=== PATIENT | female | born 1940 | race Caucasian/White ===

== ENCOUNTER 2019-07-14 12:06 | Inpatient (IN) | payer MEDICARE, MEDICAID ==
[2019-07-14] MEDS ORDERED: Atropine Sulfate 1 mg/10 ml Syringe ONE (12:17)
[2019-07-14] MEDS ORDERED: Iopamidol-370 76% 500 ML 1 ML ONE (12:28)
[2019-07-14 12:37] LABS: Actual Bicarbonate (HCO3a) 19.7 mEq/L (22-28); Analyzer IN Cardio ER; Base Excess (BEa) -10.4 mEq/L (-2.0 to +3.0); Calcium, Ionized 1.14 mmol/L (1.12-1.30); Carboxyhemoglobin (COHb) 1.7 gm% (0.0-3.0); O2 Tension (PaO2) 93.8 mmHg (> 70.0); Potassium - ABG Lab 4.19 mmol/L (3.70-5.30)
[2019-07-14 12:38] LABS: CO2 Tension 71.8 mmHg (35.0-45.0); Puncture Site RRA; pH, Arterial 7.06 (7.35-7.45)
[2019-07-14] MEDS ORDERED: Succinylcholine Chloride 20 MG/ML 10 ml SYRINGE FS ONE (12:39)
[2019-07-14] MEDS ORDERED: PROPOFOL 20 ML ONE (12:39)
[2019-07-14] MEDS ORDERED: Fentanyl 100 MCG/2 ML VIAL ONE ×2 (13:01→13:17)
[2019-07-14] MEDS ORDERED: fentaNYL Citrate/PF 2,000 MCG in Sodium Chloride 0.9% 60 ML IV SCH ×2 (13:06→16:43)
--- NOTE | 2019-07-14 13:19 | RAD ---
CHEST ONE VIEW: HISTORY: Altered mental status. FINDINGS: NG tube and endotracheal tubes are in satisfactory location. Bilateral vascular congestion with incre ased linear and interstitial markings in the perihilar regions and lower lung zones bilaterally, wors e on the left side. Abnormal alveolar opacity in the left upper perihilar region. Possibilities inclu de that of pneumonia versus underlying mass. IMPRESSION: Abnormal interstitial and alveolar opacity changes bilaterally with evidence for small pleural effusi ons and nodular parenchymal changes in the right perihilar region, left infrahilar region and left up per perihilar region, raising the possibility of multifocal pneumonia with the possibility of associa benson mass. If the patient has symptoms of pneumonia, treatment and short-term follow-up study in two to three we eks is recommended to document clearing or stability. POS: TPC
[2019-07-14] MEDS ORDERED: Midazolam HCl 5 mg/ml Vial ONE (13:59)
--- NOTE | 2019-07-14 14:26 | CT ---
CTA OF THE HEAD WITH AND WITHOUT IV CONTRAST AND 3-D REFORMATTED IMAGING. CTA OF THE NECK WITH IV CONTRAST AND 3-D REFORMATTED IMAGING. INDICATION: Transfer from [facility] with complaints of sepsis, pneumonia and anemia; st roke like symptoms with altered mental status [facility] Last seen normal at 8:00 PM last night. History of Down syndrome COMPARISON: None FINDINGS: CTA OF THE HEAD WITH AND WITHOUT CONTRAST: NONCONTRAST CT OF BRAIN: Hemorrhage: None [place]hemia/Infarction: None. Midline Shift: None. Hydrocephalus: None. Skull and Extracranial Soft tissues: Normal. CTA OF THE BRAIN: Right ICA: Patent. Right MCA: Patent. Right JEANIE: Patent. ACOM: Patent. Left ICA: Patent. Left MCA: Patent. Left JEANIE: Patent. PCOMs: Patent. Vertebral arteries: Patent. Basilar Artery: Patent. real time trader: Patent. Incidentals: None. CTA OF THE NECK WITH CONTRAST: Right CCA: Patent. Right ICA: There is moderate luminal caliber narrowing involving the origin of the right ICA with 50 % luminal caliber stenosis. The right internal carotid artery is mildly tortuous. Right Subclavian: Patent. Right Vertebral Artery: Patent. Left CCA: Patent Left ICA: There is mild narrowing involving the proximal aspect of the left internal carotid artery. The left internal carotid artery is mildly tortuous. Left Subclavian: Patent. Left Vertebral Artery: Patent. Aerodigestive tract: Patient is intubated with gastric catheter placement. Evaluation of the aerodig estive tract is limited. Parotids/Submandibular/Thyroid glands: Normal. Lymph nodes: No pathologically enlarged lymph nodes. Lung Apices: There are hazy groundglass opacity seen within both upper lobes Bones: There is prominent levoscoliosis of the thoracic spine. There is ankylosis of C5-6. There is moderate to severe multilevel cervical spondylosis. Incidentals: None. IMPRESSION: 1. No hemodynamically significant stenosis, occlusion or aneurysmal formation within the head. 2. Moderate luminal caliber narrowing involving the origin of the right ICA and mild narrowing involv ing the proximal left internal carotid artery. 3. Hazy groundglass opacity within both upper lobes may reflect pulmonary edema or an infectious pneu monitis.
[2019-07-14 14:27] LABS: Actual Bicarbonate (HCO3a) 21.4 mEq/L (22-28); Analyzer IN Cardio ER; Base Excess (BEa) -2.8 mEq/L (-2.0 to +3.0); CO2 Tension 33.3 mmHg (35.0-45.0); Calcium, Ionized 1.06 mmol/L (1.12-1.30); Carboxyhemoglobin (COHb) 1.8 gm% (0.0-3.0); Hemoglobin (Hb) 6.3 g/dL (12.0-16.0); O2 Tension (PaO2) 174.1 mmHg (> 70.0); pH, Arterial 7.43 (7.35-7.45)
[2019-07-14 14:33] LABS: Puncture Site RRA
[2019-07-14 14:34] LABS: ALV-art Gradient 69.475 (0-20)
[2019-07-14] MEDS ORDERED: Norepinephrine 8 MG/0.9% NS 250 ML IVPB SCH (15:51)
[2019-07-14] MEDS ORDERED: Ondansetron PF 4 MG/2 ML Vial IVP PRN (15:51)
[2019-07-14] MEDS ORDERED: HUMULIN R 100 UNITS in Sodium Chloride 0.9% 100 ML IVPB SCH (15:51)
[2019-07-14] MEDS ORDERED: CCU Electrolyte Replacement 1 EACH FS ONE (15:51)
[2019-07-14] MEDS ORDERED: Acetaminophen 650 MG Suppository PR PRN (15:51)
[2019-07-14] MEDS ORDERED: Ventilator Sedation Protocol 1 EACH FS ONE (15:51)
[2019-07-14] MEDS ORDERED: Fentanyl BOLUS 250 ML IVPB PRN (16:43)
[2019-07-14] MEDS ORDERED: Propofol BOLUS 1,000 MG/100 ML VIAL IV PRN (16:43)
[2019-07-14] MEDS ORDERED: Morphine 2 MG/ML SYRINGE SLOW IVP PRN (16:43)
[2019-07-14] MEDS ORDERED: DISCONTINUE PREVIOUS NARCOTIC PAIN MEDICATIONS AND BENZODIAZEPINES FS SCH (16:43)
--- NOTE | 2019-07-14 16:57 | RAD ---
PORTABLE AP CHEST X-RAY: 07/14/19 HISTORY: Sepsis. COMPARISON: 07/14/19 at 1236 hours. FINDINGS: Endotracheal tube and nasogastric tube remain stable in position. Again noted is the mass-like density in the left mid lung zone with increased density and prominence in the right hilar region. Cardiac silhouette and pulmonary vasculature are within normal limits for the portable technique of the study. Severe bilateral glenohumeral osteoarthropathy is again noted. IMPRESSION: 1. Mass-like densities left mid lung zone and overlying right hilar region. The parenchymal opac ity overlying the right hilar region has increased from the prior exam. Findings could be related to multifocal pneumonia, but follow-up to complete resolution is recommended to exclude a neoplastic pro cess. 2. Mild improvement in interstitial densities previously seen at each lung base. 3. Endotracheal tube and nasogastric tube stable in position. POS: OFF
[2019-07-14 17:22] LABS: Bacteria/HPF 4+ HPF (None Seen); Bilirubin Negative (Negative); Blood, Urine 2+ (Negative); Clarity Turbid (Clear); Glucose, Urine (Dipstick) 150 mg/dL (Negative); Leukocyte Negative Leu/uL (Negative); Nitrite Negative (Negative); Protein, Urine (Dipstick) 200 mg/dL (Neg-Trace); RBC/HPF 0-3 HPF (0-3); Squamous Epithelial 0-3 HPF (0-3); Urobilinogen Normal mg/dL (Less than 2)
[2019-07-14] MEDS ORDERED: PHOS-NAK 1 PKT PACK PO PRN ×2 (17:34)
[2019-07-14] MEDS ORDERED: CCU ELECTROLYTE REPLACEMENT PROTOCOL FS PRN (17:34)
[2019-07-14] MEDS ORDERED: Potassium Chloride 20 MEQ TAB PO PRN (17:34)
[2019-07-14] MEDS ORDERED: Magnesium 2 GM/50 ML 2 GM in Premix Bag 1 BAG IVPB PRN (17:34)
[2019-07-14] MEDS ORDERED: Potassium Chloride 40 MEQ in Premix Bag 1 BAG IVPB PRN (17:34)
[2019-07-14] MEDS ORDERED: Potassium Phosphate 15 MMOL in Sodium Chloride 0.9% 250 ML 250 ML IV PRN (17:34)
[2019-07-14] MEDS ORDERED: Magnesium Oxide 400 MG TAB PO PRN ×2 (17:34)
[2019-07-14] MEDS ORDERED: Potassium Phosphate 12 MMOL in Sodium Chloride 0.9% 250 ML 250 ML IV PRN (17:34)
[2019-07-14] MEDS ORDERED: Potassium Chloride 40 MEQ in Sodium Chloride 0.9% 250 ML 250 ML IVPB PRN (17:34)
[2019-07-14] MEDS ORDERED: Potassium Phosphate 9 MMOL in Sodium Chloride 0.9% 100 ML IVPB PRN (17:34)
[2019-07-14] MEDS: Sodium Chloride 0.9% 1,000 ML IV SCH ×2 (17:38→17:39)
[2019-07-14] MEDS: Piperacillin/Tazobactam 3.375 GM in Sodium Chloride 0.9% 100 ML IVPB SCH (17:56)
[2019-07-14] MEDS ORDERED: Dextrose 50% Abboject 50 ML SYRINGE SLOW IVP PRN (18:16)
[2019-07-14] MEDS ORDERED: Dextrose 5% in Water 1,000 ML IV PRN (18:16)
[2019-07-14] MEDS: Lorazepam 2 MG/ML VIAL SLOW IVP PRN (19:30)
[2019-07-14] MEDS: Vancomycin 1.5 GRAM/300 ML BAG 1.5 GM in Premix Bag 1 BAG IVPB SCH (20:49)
[2019-07-14] MEDS: Propofol 1,000 MG/100 ML VIAL IV PRN (20:59)
[2019-07-15] MEDS: Piperacillin/Tazobactam 3.375 GM in Sodium Chloride 0.9% 100 ML IVPB SCH ×4 (00:34→16:53)
[2019-07-15] MEDS: Sodium Chloride 0.9% 1,000 ML IV SCH ×5 (00:37→22:00)
[2019-07-15 05:19] LABS: Anion Gap 15 mmol/L (10-20); BUN (Urea Nitrogen) 14 mg/dL (9.8-20.1); Calc. Creatinine Clearance 65 mL/min (70-130); Calcium 8.2 mg/dL (7.8-10.44); Carbon Dioxide 19 mmol/L (23-31); Chloride 103 mmol/L (98-107); Estimated GFR-MDRD 68; Glucose 89 mg/dL (83-110); Potassium 3.5 mmol/L (3.5-5.1); Sodium 133 mmol/L (136-145)
[2019-07-15 06:11] LABS: #Eosinphils 0.1 thou/uL (0.0-0.7); #Lymphocytes 1.8 thou/uL (1.20-3.40); #Monocytes 1.6 thou/uL (0.11-0.59); #Neutrophils 7.6 thou/uL (1.40-6.50); %Basophils 0.2 % (0.0-1.0); %Eosinophils 0.5 % (0.0-10.0); %Monocytes 14.7 % (0.0-10.0); %Neutrophils 68.6 % (42.0-75.0); Hemoglobin 6.4 g/dL (12.0-16.0); Mean Corpuscular HGB CONC 30.7 g/dL (32.0-36.0); Mean Corpuscular Hemoglobin 22.7 pg (27.0-31.0); Mean Corpuscular Volume 73.8 fL (78.0-98.0); Mean Platelet Volume 7.4 fL (7.4-10.4); Platelet Count 321 thou/uL (130-400); RBC Distribution Width 16.3 % (11.5-14.5); Red Blood Cell (RBC) Count 2.81 mill/uL (4.20-5.40)
[2019-07-15 06:12] LABS: Anisocytosis SLIGHT = 6-15 cells (100X) (0-5/hpf); Elliptocytes SLIGHT = 2-5 cells (100X) (0-1/hpf); Hypochromia SLIGHT = 6-15 cells (100X) (0-5/hpf); MDiff Complete? YES
[2019-07-15 06:47] LABS: Actual Bicarbonate (HCO3a) 21.3 mEq/L (22-28); Base Excess (BEa) -3.6 mEq/L (-2.0 to +3.0); CO2 Tension 37.8 mmHg (35.0-45.0); Calcium, Ionized 1.09 mmol/L (1.12-1.30); Carboxyhemoglobin (COHb) 2.2 gm% (0.0-3.0); Potassium - ABG Lab 3.62 mmol/L (3.70-5.30); pH, Arterial 7.37 (7.35-7.45)
[2019-07-15 06:58] LABS: Puncture Site RRAD
--- NOTE | 2019-07-15 07:54 | CON ---
DATE OF CONSULTATION: HISTORY OF PRESENT ILLNESS: She is intubated in the vent. She is transferred to the ICU with a diagnosis of sepsis and pneumonia. There are no family members at the bedside. Additional information is obtained from reviewing the transfer note, ER note. The patient is presented apparently to the ER with mental status change and resp distress last night. She is in a focused care correction. She has Parkinson disease and apparently, baseline dementia and Down syndrome. She was seen by the ER physician, extensive workup was done there, they are concerned she had a CT head and angio done, which shows no bleed. The patient's sister apparently was there. Hemoglobin on arrival was 7. They were transferring her to higher level of care. X-ray showed left-sided pneumonia. Somewhat down the line, she was intubated. It is unclear when EKG was unremarkable. PAST MEDICAL HISTORY: Pertinent for diabetes, anxiety, seizure disorder, hypertension, COPD, Parkinson disease, and gout. SOCIAL HISTORY: Never smoke. No alcohol abuse. No drug abuse. MEDICATIONS: List of medicine that was brought in en route included: 1. Tylenol. 2. Albuterol. 3. Allopurinol 100. 4. BuSpar 15. 5. Catapres patch. 6. Catapres p.o. 7. Plavix 75. 8. Cymbalta 60. 9. Lasix 20. 10. Keppra 750. 11. Synthroid 50. 12. Lisinopril 20. 13. Loratadine 10. ALLERGIES: APPARENTLY NONE. PHYSICAL EXAMINATION: GENERAL: Otherwise in the ICU, she is sedated on fentanyl 150. VITAL SIGNS: Pulse 70, blood pressure 100/70, sats are 100%, and respirations 10. CHEST: Bilateral rhonchi and crackles. CARDIAC: Normal S1 and S2. No gallops. ABDOMEN: No masses. LABORATORY DATA: PO2 of 174, pCO2 of 33, pH 7.43. Peak pressures at about 31. Chest x-ray shows bilateral infiltrates. CT head angio negative. Additionally, workup at the transfer center from [place] reveals a lab showed a white count was 13,000, hemoglobin and hematocrit of 7 and 23, glucose 158. Sodium was low at 132. Lactic acid was 3. Blood urine cultures were done. Platelet count normal. Albumin was normal at 4.5, BUN 16, creatinine 0.7, and bicarb was 21. IMPRESSION: Respiratory failure, pneumonia, chronic anemia, abnormal EKG, hypertension, baseline dementia, Parkinson disease, chronic obstructive pulmonary disease, and Down syndrome. She is on multiple antibiotic, which I continue. Start nutrition in the next 24 hours. Neb treatment is initiated ordered. we will wean when stable. We discussed with family as they arrive. This is a 45-minute critical time. Job ID: [id number] MTDSid
--- NOTE | 2019-07-15 08:02 | HP ---
PRIMARY CARE PROVIDER: Riley Sanchez MD, referred to the [facility] Hospitalist Service after transfer from [facility]. History was obtained from sister, Clarissa Lopez, who is the power of steel plate caulker. HISTORY OF PRESENT ILLNESS: The patient is a 79-year-old woman with Down syndrome, resident of care home. She was seen several days ago by Ms. Lopez, and she was doing well. Yesterday, she was notified that the patient had fallen, otherwise unremarkable. This morning, she was notified she was being sent to the emergency department with slurred speech, shaking all over. When she got to the ER, she noted that the patient became worse and developed hemiplegia. She came into [place] [facility], hypotensive with blood pressure 98/60. She was given atropine. Her pulse rapidly came up into the 70s. Arterial blood gas was severe with respiratory acidosis marked. She was intubated and sedated. PAST MEDICAL HISTORY: Down syndrome. She has fainted twice in the past year. She has history of diabetes mellitus type 2, hypertension, hypothyroidism, and Parkinson disease. PAST SURGICAL HISTORY: She has had a nephrectomy for renal cell carcinoma. She has had a C-spine fusion in the distant past. She has had bilateral cataract surgeries. ALLERGIES: NONE. MEDICATIONS: 1. Albuterol nebulizer 1.25 p.r.n. 2. Zyloprim 100 mg a day. 3. Aspirin 81 mg a day. 4. BuSpar 15 mg a day. 5. Varrjpebc-GEN-9 on skin, change every 7 days. 6. Clonidine 0.1 mg p.r.n. 7. Plavix 75 mg a day. 8. Cymbalta 60 mg a day. 9. Lasix 20 mg a day. 10. Keppra 750 mg, unknown frequency. 11. Lisinopril 20 mg a day. 12. Claritin 10 mg a day. FAMILY HISTORY: Brother has diabetes. No Parkinson's in the family. SOCIAL HISTORY: Resident of care home. Ambulates in wheelchair. Full code status confirmed with sister, Clarissa Lopez. No tobacco. No alcohol. REVIEW OF SYSTEMS: Unobtainable as the patient is intubated and sedated. CURRENT PHYSICAL EXAMINATION: GENERAL: Intubated, sedated, unresponsive. VITAL SIGNS: Current vital signs; pulse 80, blood pressure 116/75 on a vent with saturations in the mid 90s, and temperature 96.6. EXAMINATION OF HER HEAD, EYES, EARS, NOSE, AND THROAT: Reveals pupils are equal , round, with implants. Extraocular movements grossly intact. Sclerae are white. Tympanic membranes clear. Nose, clear. Examination of mouth is difficult due to the endotracheal and orogastric tube. NECK: Thick, short. No adenopathy, jugular venous distention. CHEST: Remarkably clear to auscultation and percussion. HEART: Had a regular rate and rhythm. First and second heart sounds are clear. There are no appreciated murmurs or gallops. ABDOMEN: Soft. Bowel sounds are normal. There is no hepatosplenomegaly. No mass. No rebound. No bruits. EXTREMITIES: Revealed 1+ edema with no cyanosis or clubbing. Pulses; carotid, radial, femoral, and dorsalis pedis pulses intact. SKIN: Warm and dry without bruises or rash. HEME/LYMPH: No tender or swollen lymph nodes in axilla, inguinal, cervical area that I was able to appreciate. NEUROLOGIC: Facies were symmetric. Deep tendon reflexes are diffusely diminished. Both toes are upgoing to plantar stimulation. LABORATORY DATA: Chest x-ray done here, vertical heart, infiltrates in the left upper lobe, left lower lobe, and right middle lobe. Endotracheal tube is present. Difficult to say whether it is above the kolby on the present study, reviewed by me. EKG; regular sinus rhythm within normal limits, reviewed by me. Laboratory done here strictly a blood gas, the first one was pH 7.06, pCO2 of 71.8, PO2 of 93.8 on 50% O2. Followup post intubation, pH 7.43, pCO2 of 33.3, O2 174 on 40% O2. Laboratory from [facility]. White cell count 13.0, hemoglobin 7.1 with microcytic microchromic indices, do not see a platelet count. Glucose 158, sodium 132, chloride 95, CO2 of 21, lactic acid 3.0, troponin 0.16. CT of the brain was done in [place] revealed enlargement of the ventricles. ADMITTING DIAGNOSES: 1. Sepsis syndrome with respiratory failure and transient hypotension. 2. Acute combined respiratory failure with hypercapnia and hypoxemia. 3. Pneumonia. 4. Diabetes mellitus, type 2. 5. Parkinson's. 6. Hypertension. 7. Normal renal function with history of nephrectomy. 8. Lactic acidosis plus respiratory acidosis. PLAN: The patient is full code. She is intubated, ventilated. She will be moved to the Critical Care Unit in the track template maker, director of intelligence to be consulted. Orders have been written for culture. She will be on vancomycin, Levaquin, and Zosyn because of her diabetes. She will initially be on IV insulin with frequent Accu-Cheks. She is currently not in need of pressors, but order for pressor has been written as needed. With history of coming in with severe bradycardia, there is worry about sick sinus syndrome since she has had 2 fainting spells, she will require close monitoring. Routine medicines such as her Parkinson medicines, etc., will be held at the present time. Job ID: [id number] MTDD
[2019-07-15] MEDS ORDERED: Artificial Tears 18 DROP/0.9 ML EA EYE PRN (08:06)
[2019-07-15] MEDS ORDERED: Sodium Chloride 0.65% Nasal 44 ML BOT EA NARE PRN (08:06)
[2019-07-15] MEDS ORDERED: Cepastat Lozenges 1 LOZ PO PRN (08:06)
[2019-07-15] MEDS ORDERED: levETIRAcetam 750 MG, Admixture Fee 1 EACH in Sodium Chloride 0.9% 100 ML IVPB SCH (09:00)
[2019-07-15] MEDS ORDERED: FLU VACC TS2019-20(65YR UP)/PF 180 MCG/0.5 ML SYRINGE IM ONE (09:00)
[2019-07-15] MEDS ORDERED: Prevnar 13-Val Conj/PF 0.5 ML SYRINGE IM ONE (09:00)
--- NOTE | 2019-07-15 09:07 | RAD ---
CHEST ONE VIEW: HISTORY: Intubated. Dyspnea. Followup. COMPARISON: 07/14/2019 FINDINGS: The cardiac silhouette is magnified by projection. Dense mass-like right infrahilar and left suprahil ar infiltrates, similar in appearance to the previous exam. Mediastinum is midline. Lines and tubes appear unchanged in position. No evidence of pneumothorax. Degenerative changes and partial collapse of each humeral head, similar in appearance. IMPRESSION: Dense bilateral mass like infiltrates and other findings are stable. POS: BOWEN
--- NOTE | 2019-07-15 09:16 | PRG ---
DATE OF SERVICE: 07/15/2019 SUBJECTIVE: Elvie Oliver this morning, she remains in the ICU, intubated in the vent, sedated. OBJECTIVE: VITAL SIGNS: Pulse is 93, temperature is 98, blood pressure 143/60, respiratory rate 18, sats 100%. I's and O's have been slightly ahead. CHEST: Decreased breath sounds. Minimal rhonchi. CARDIAC: Normal S1 and S2. No gallops. ABDOMEN: No masses. LABORATORY DATA: Hemoglobin and hematocrit are 6 and 20, white count 71911, platelet count is normal. PO2 is 151, pCO2 37, pH 7.37, on 40%, rate of 10, 470 tidal volume. Lytes are normal. Sodium is improved to 133, bicarb is 19, glucose is 140. X-ray shows bilateral pneumonia. IMPRESSION: Sepsis syndrome, pneumonia, Down syndrome, anemia, mental retardation, history of seizure disorders. PLAN: A unit of packed cells is being transfused. Continue antibiotics, deescalate once the other cultures back. Continue vent support. At this stage, she is not weanable. Hopefully in the next 24 to 48 hours, we can start weaning. This is one-half hour of critical time. Job ID: [id number]
[2019-07-15] MEDS: Famotidine/PF 20 mg/2ml Vial SLOW IVP SCH ×2 (09:52→20:19)
[2019-07-15] MEDS: Enoxaparin Sodium 40 MG/0.4 ML SYRINGE SC SCH (09:53)
--- NOTE | 2019-07-15 12:15 | PDOC.HOSPP ---
- Subjective Encounter Date: 07/15/19 Encounter Time: 09:45 Subjective: Patient seen and examined. No overnight events - Objective Vital Signs & Weight: Vital Signs (12 hours) Temp Pulse Resp Pulse Ox 07/15/19 12:00 12 07/15/19 11:00 99.2 F 07/15/19 10:19 84 07/15/19 10:00 12 07/15/19 09:59 98.9 F 07/15/19 08:00 99.0 F 12 100 07/15/19 06:59 93 07/15/19 06:56 82 12 100 07/15/19 06:00 12 07/15/19 04:00 99.4 F 12 07/15/19 03:00 100.6 F H 07/15/19 02:00 12 Weight Admit Weight 160 lb 7.944 oz Weight 155 lb 6.814 oz Most Recent Monitor Data Heart Rate from ECG 84 NIBP 128/55 NIBP BP-Mean 79 Respiration from ECG 21 SpO2 100 I&O: 07/14/19 07/15/19 07/16/19 06:59 06:59 06:59 Intake Total 1513.6 0 Output Total 590 225 Balance 923.6 -225 Result Diagrams: 07/15/19 04:48 07/15/19 04:48 Additional Labs: Accuchecks 07/15/19 07/15/19 07/14/19 09:26 00:49 21:59 POC Glucose 82 114 H 85 Radiology Reviewed by me: Yes EKG Reviewed by me: Yes Hospitalist ROS - Review of Systems ROS unobtainable: due to endotracheal tube - Medication Medications: Active Medications Generic Name Dose Route Start Last Admin Trade Name Freq PRN Reason Stop Dose Admin Acetaminophen 650 mg 07/14/19 15:51 07/15/19 03:06 Tylenol [place] 650 mg Q4H PRN Administration Headache/Fever/Mild Pain (1-3) Albuterol/Ipratropium 3 ml 07/14/19 19:00 07/15/19 06:56 Duoneb NEB 3 ml [id number] CARL Administration Enoxaparin Sodium 40 mg 07/15/19 09:00 07/15/19 09:53 Lovenox SC 40 mg 0900 CARL Administration Famotidine 20 mg 07/15/19 09:00 07/15/19 09:52 Pepcid SLOW IVP 20 mg BID CARL Administration Sodium Chloride 1,000 mls @ 0 mls/hr 07/14/19 15:51 07/14/19 17:38 Normal Saline 0.9% IV 1,000 mls .Q0M CARL Administration As Directed Sodium Chloride 1,000 mls @ 100 mls/hr 07/14/19 15:51 07/15/19 00:37 Normal Saline 0.9% IV 1,000 mls .Q10H CARL Administration Piperacillin Sod/Tazobactam 100 mls @ 200 mls/hr 07/14/19 18:00 07/15/19 05: 16 Sod 3.375 gm/ Sodium Chloride IVPB 100 mls Q6HR CARL Administration Vancomycin HCl 1.5 gm/ Device 300 mls @ 200 mls/hr 07/14/19 20:00 07/14/19 20 :49 IVPB 300 mls 2000 CARL Administration Potassium Chloride 40 meq/ 270 mls @ 67.5 mls/hr 07/14/19 17:34 07/15/19 08: 49 Sodium Chloride IVPB 270 mls ASDIR PRN Administration FOR SERUM K+ 2.5 - 3.5 Lorazepam 2 mg 07/14/19 16:43 07/14/19 19:30 Ativan SLOW IVP 08/13/19 16:43 2 mg Q1H PRN Administration Breakthrough agitation Propofol 1,000 mg 07/14/19 16:43 07/14/19 20:59 Diprivan IV 08/13/19 16:43 1,000 mg INF PRN Administration TO ACHIEVE GOAL RASS Protocol - Exam General Appearance: NAD, awake alert Eye: PERRL, anicteric sclera ENT: normocephalic atraumatic, no oropharyngeal lesions Neck: supple, symmetric, no JVD Heart: RRR, no murmur Respiratory: CTAB, no wheezes Gastrointestinal: soft, non-distended, normal bowel sounds Extremities: no edema Skin: normal turgor Musculoskeletal: normal tone Hosp A/P (1) Acute respiratory failure with hypoxia Code(s): J96.01 - ACUTE RESPIRATORY FAILURE WITH HYPOXIA Status: Acute (2) Pneumonia Code(s): J18.9 - PNEUMONIA, UNSPECIFIED ORGANISM Status: Acute (3) Sepsis Code(s): A41.9 - SEPSIS, UNSPECIFIED ORGANISM Status: Acute (4) Diabetes type 2, controlled Code(s): E11.9 - TYPE 2 DIABETES MELLITUS WITHOUT COMPLICATIONS Status: Chronic (5) Parkinson disease Code(s): G20 - PARKINSON'S DISEASE Status: Chronic (6) Hypothyroidism Code(s): E03.9 - HYPOTHYROIDISM, UNSPECIFIED Status: Chronic (7) Hypertension Code(s): I10 - ESSENTIAL (PRIMARY) HYPERTENSION Status: Chronic (8) Dyslipidemia Code(s): E78.5 - HYPERLIPIDEMIA, UNSPECIFIED Status: Chronic (9) Anxiety and depression Code(s): F41.9 - ANXIETY DISORDER, UNSPECIFIED; F32.9 - MAJOR DEPRESSIVE DISORDER, SINGLE EPISODE, UNSPECIFIED Status: Chronic - Plan old records reviewed/req, continue antibiotics, respiratory therapy 07/15/19- continue vent as per pulmonry, medication reviewed and continue to provide supportive care,
[2019-07-15] MEDS: Propofol 1,000 MG/100 ML VIAL IV PRN (16:53)
[2019-07-15] MEDS: Vancomycin 1.5 GRAM/300 ML BAG 1.5 GM in Premix Bag 1 BAG IVPB SCH (20:15)
[2019-07-15] MEDS: levETIRAcetam 750 MG, Admixture Fee 1 EACH in Sodium Chloride 0.9% 100 ML IVPB SCH (20:19)
[2019-07-15] MEDS: HumaLOG 300 UNITS/3 ML VIAL SC PRN (22:12)
[2019-07-16] MEDS: Piperacillin/Tazobactam 3.375 GM in Sodium Chloride 0.9% 100 ML IVPB SCH ×4 (00:36→17:21)
[2019-07-16 03:52] LABS: #Basophils 0.1 thou/uL (0.0-0.2); #Eosinphils 0.3 thou/uL (0.0-0.7); #Lymphocytes 1.5 thou/uL (1.20-3.40); #Monocytes 1.3 thou/uL (0.11-0.59); #Neutrophils 7.7 thou/uL (1.40-6.50); %Basophils 0.5 % (0.0-1.0); %Eosinophils 2.4 % (0.0-10.0); %Lymphocytes 13.7 % (21.0-51.0); %Monocytes 12.1 % (0.0-10.0); %Neutrophils 71.4 % (42.0-75.0); Hemoglobin 8.2 g/dL (12.0-16.0); Mean Corpuscular Hemoglobin 24.4 pg (27.0-31.0); Mean Corpuscular Volume 76.3 fL (78.0-98.0); Mean Platelet Volume 7.4 fL (7.4-10.4); Platelet Count 313 thou/uL (130-400); RBC Distribution Width 16.4 % (11.5-14.5); Red Blood Cell (RBC) Count 3.34 mill/uL (4.20-5.40); White Blood Cell (WBC) Count 10.8 thou/uL (4.8-10.8)
[2019-07-16 04:03] LABS: Anion Gap 13 mmol/L (10-20); BUN (Urea Nitrogen) 14 mg/dL (9.8-20.1); Calc. Creatinine Clearance 63 mL/min (70-130); Calcium 7.9 mg/dL (7.8-10.44); Carbon Dioxide 18 mmol/L (23-31); Chloride 108 mmol/L (98-107); Estimated GFR-MDRD 68; Glucose 145 mg/dL (83-110); Sodium 135 mmol/L (136-145)
[2019-07-16] MEDS: HumaLOG 300 UNITS/3 ML VIAL SC PRN ×2 (04:19→17:58)
[2019-07-16] MEDS: Propofol 1,000 MG/100 ML VIAL IV PRN ×2 (04:44→17:20)
[2019-07-16 07:31] LABS: Actual Bicarbonate (HCO3a) 20.3 mEq/L (22-28); Base Excess (BEa) -4.7 mEq/L (-2.0 to +3.0); CO2 Tension 36.6 mmHg (35.0-45.0); Calcium, Ionized 1.12 mmol/L (1.12-1.30); Carboxyhemoglobin (COHb) 2.2 gm% (0.0-3.0); O2 Tension (PaO2) 143.8 mmHg (> 70.0); Potassium - ABG Lab 3.79 mmol/L (3.70-5.30); pH, Arterial 7.36 (7.35-7.45)
--- NOTE | 2019-07-16 07:32 | RAD ---
EXAM: Portable chest PROVIDED CLINICAL HISTORY: Respiratory insufficiency COMPARISON: 07/15/2019 FINDINGS: Significant interval change with respect to the prior examination is not apparent. IMPRESSION: As above.
[2019-07-16 07:41] LABS: Puncture Site RRAD
[2019-07-16] MEDS: levETIRAcetam 750 MG, Admixture Fee 1 EACH in Sodium Chloride 0.9% 100 ML IVPB SCH ×2 (09:05→19:51)
[2019-07-16] MEDS: Famotidine/PF 20 mg/2ml Vial SLOW IVP SCH ×2 (09:05→19:51)
[2019-07-16] MEDS: Enoxaparin Sodium 40 MG/0.4 ML SYRINGE SC SCH (09:05)
[2019-07-16] MEDS: Sodium Chloride 0.9% 1,000 ML IV SCH ×5 (09:06→17:53)
--- NOTE | 2019-07-16 11:20 | PDOC.HOSPP ---
- Subjective Encounter Date: 07/16/19 Encounter Time: 09:00 Subjective: pt is on ventilator, Patient seen and examined. No overnight events - Objective Vital Signs & Weight: Vital Signs (12 hours) Temp Pulse Resp BP Pulse Ox 07/16/19 10:20 80 07/16/19 10:00 10 L 07/16/19 08:00 98.6 F 10 L 100 07/16/19 07:37 70 15 100 07/16/19 06:00 12 07/16/19 04:00 98.3 F 13 07/16/19 03:17 86 122/62 07/16/19 02:00 11 L 07/16/19 00:37 79 07/16/19 00:00 99.4 F 14 Weight Admit Weight 160 lb 7.944 oz Weight 166 lb 10.711 oz Most Recent Monitor Data Heart Rate from ECG 73 NIBP 134/55 NIBP BP-Mean 81 Respiration from ECG 22 SpO2 100 I&O: 07/15/19 07/16/19 07/17/19 06:59 06:59 06:59 Intake Total 1513.6 4742.8 Output Total 590 733 115 Balance 923.6 4009.8 -115 Result Diagrams: 07/16/19 03:10 07/16/19 03:10 Additional Labs: Accuchecks 07/16/19 07/15/19 07/15/19 04:13 22:11 16:58 POC Glucose 173 H 185 H 97 Radiology Reviewed by me: Yes EKG Reviewed by me: Yes Hospitalist ROS - Review of Systems ROS unobtainable: due to endotracheal tube - Medication Medications: Active Medications Generic Name Dose Route Start Last Admin Trade Name Freq PRN Reason Stop Dose Admin Acetaminophen 650 mg 07/14/19 15:51 07/15/19 03:06 Tylenol AZ 650 mg Q4H PRN Administration Headache/Fever/Mild Pain (1-3) Albuterol/Ipratropium 3 ml 07/14/19 19:00 07/16/19 07:37 Duoneb NEB 3 ml [id number] CARL Administration Enoxaparin Sodium 40 mg 07/15/19 09:00 07/16/19 09:05 Lovenox SC 40 mg 0900 CARL Administration Famotidine 20 mg 07/15/19 09:00 07/16/19 09:05 Pepcid SLOW IVP 20 mg BID CARL Administration Levofloxacin 750 mg/ Device 150 mls @ 100 mls/hr 07/15/19 15:00 07/15/19 14: 52 IVPB 150 mls 1500 CARL Administration Sodium Chloride 1,000 mls @ 0 mls/hr 07/14/19 15:51 07/16/19 09:10 Normal Saline 0.9% IV 1,000 mls .Q0M CARL Administration As Directed Sodium Chloride 1,000 mls @ 100 mls/hr 07/14/19 15:51 07/15/19 22:00 Normal Saline 0.9% IV Not Given .Q10H CARL Piperacillin Sod/Tazobactam 100 mls @ 200 mls/hr 07/14/19 18:00 07/16/19 05: 00 Sod 3.375 gm/ Sodium Chloride IVPB 100 mls Q6HR CARL Administration Vancomycin HCl 1.5 gm/ Device 300 mls @ 200 mls/hr 07/14/19 20:00 07/15/19 20 :15 IVPB 300 mls 2000 CARL Administration Fentanyl Citrate 2,000 mcg/ 100 mls @ 0 mls/hr 07/14/19 16:43 07/15/19 20:31 Sodium Chloride IV 08/13/19 16:43 100 mls INF CARL Administration Protocol Per Protocol Potassium Chloride 40 meq/ 270 mls @ 67.5 mls/hr 07/14/19 17:34 07/15/19 08: 49 Sodium Chloride IVPB 270 mls ASDIR PRN Administration FOR SERUM K+ 2.5 - 3.5 Levetiracetam 750 mg/ 107.5 mls @ 215 mls/hr 07/15/19 21:00 07/16/19 09:05 Miscellaneous Medication 1 IVPB 107.5 mls each/ Sodium Chloride BID CARL Administration Insulin Human Lispro 0 units 07/14/19 18:16 07/16/19 04:19 Humalog SC 2 unit .MODERATE SLIDING SC PRN Administration Moderate Correctional Scale Lorazepam 2 mg 07/14/19 16:43 07/14/19 19:30 Ativan SLOW IVP 08/13/19 16:43 2 mg Q1H PRN Administration Breakthrough agitation Propofol 1,000 mg 07/14/19 16:43 07/16/19 04:44 Diprivan IV 08/13/19 16:43 1,000 mg INF PRN Administration TO ACHIEVE GOAL RASS Protocol - Exam General Appearance: NAD Eye: PERRL ENT: normocephalic atraumatic Neck: supple, symmetric, no JVD Heart: RRR, no murmur, no gallops Respiratory: no wheezes, no rales, no ronchi Gastrointestinal: soft, non-distended, normal bowel sounds Extremities: no edema Skin: normal turgor Hosp A/P (1) Acute respiratory failure with hypoxia Code(s): J96.01 - ACUTE RESPIRATORY FAILURE WITH HYPOXIA Status: Acute (2) Pneumonia Code(s): J18.9 - PNEUMONIA, UNSPECIFIED ORGANISM Status: Acute Qualifiers: Pneumonia type: due to unspecified organism Laterality: bilateral Lung location: lower lobe of lung Qualified Code(s): J18.9 - Pneumonia, unspecified organism (3) Sepsis Code(s): A41.9 - SEPSIS, UNSPECIFIED ORGANISM Status: Acute Qualifiers: Sepsis acute organ dysfunction status: with acute organ dysfunction Severe sepsis acute organ dysfunction type: acute respiratory failure Acute respiratory failure type: with hypoxia Severe sepsis shock status: without septic shock (4) Diabetes type 2, controlled Code(s): E11.9 - TYPE 2 DIABETES MELLITUS WITHOUT COMPLICATIONS Status: Chronic Qualifiers: Diabetes mellitus group home insulin use: with group home use (5) Parkinson disease Code(s): G20 - PARKINSON'S DISEASE Status: Chronic (6) Hypothyroidism Code(s): E03.9 - HYPOTHYROIDISM, UNSPECIFIED Status: Chronic (7) Hypertension Code(s): I10 - ESSENTIAL (PRIMARY) HYPERTENSION Status: Chronic (8) Dyslipidemia Code(s): E78.5 - HYPERLIPIDEMIA, UNSPECIFIED Status: Chronic (9) Anxiety and depression Code(s): F41.9 - ANXIETY DISORDER, UNSPECIFIED; F32.9 - MAJOR DEPRESSIVE DISORDER, SINGLE EPISODE, UNSPECIFIED Status: Chronic - Plan old records reviewed/req, continue antibiotics, respiratory therapy 07/15/19- continue vent as per pulmonry, medication reviewed and continue to provide supportive care, 07/16/19- continue zosyn, vancomycin and levaquin, vent as per pulmonary, so far culture negative, medication reviewed as above, symptomatic treatment
--- NOTE | 2019-07-16 13:41 | PRG ---
DATE OF SERVICE: 07/16/2019 SUBJECTIVE: Elvie Oliver remains ventilated. She is on pressure support of 10 and 5 of PEEP. OBJECTIVE: VITAL SIGNS: Stable. Heart rate 82, respiratory rate is in the high 20s, oximetry is 97%, blood pressure 160/66. GENERAL: She is lightly sedated. LUNGS: Remarkable for diffuse wheezes. HEART: Regular rhythm. S1 and S2 are normal. ABDOMEN: Soft and nontender. EXTREMITIES: Without asymmetry. DIAGNOSTIC DATA: Chest radiograph reviewed by me shows bilateral infiltrates worse at the right base. LABORATORY DATA: White count 10.8, hemoglobin 8.2, platelets 313. Sodium 135, potassium 4, chloride 108, bicarb 18, BUN 14, creatinine 0.8. PH 7.36, pCO2 of 36, pO2 of 143. IMPRESSION: 1. Respiratory failure. In my opinion, she is currently not weanable. 2. Reactive airways with bronchospasm at this time. 3. Pneumonia. 4. Down syndrome. 5. Deconditioning. 6. Non-anion gap metabolic acidosis is mild. 7. Anemia with a decreased mean corpuscular volume of unclear etiology. PLAN: Continue supportive care. Plan to extubate her today. Job ID: [id number]
[2019-07-16 19:52] LABS: Vancomycin, Trough 11.9 ug/mL
[2019-07-16] MEDS: Vancomycin HCl 1.75 GM in Sodium Chloride 0.9% 500 ML IVPB SCH (20:20)
[2019-07-16] MEDS: Lorazepam 2 MG/ML VIAL SLOW IVP PRN (20:26)
[2019-07-17] MEDS: Piperacillin/Tazobactam 3.375 GM in Sodium Chloride 0.9% 100 ML IVPB SCH ×4 (00:07→17:02)
[2019-07-17] MEDS: Lorazepam 2 MG/ML VIAL SLOW IVP PRN (01:11)
[2019-07-17] MEDS: Sodium Chloride 0.9% 1,000 ML IV SCH ×3 (03:10→03:12)
[2019-07-17] MEDS: Propofol 1,000 MG/100 ML VIAL IV PRN (03:12)
[2019-07-17 04:04] LABS: Anion Gap 14 mmol/L (10-20); BUN (Urea Nitrogen) 11 mg/dL (9.8-20.1); Calc. Creatinine Clearance 74 mL/min (70-130); Calcium 8.2 mg/dL (7.8-10.44); Carbon Dioxide 16 mmol/L (23-31); Chloride 110 mmol/L (98-107); Estimated GFR-MDRD 76; Glucose 140 mg/dL (83-110); Potassium 4.1 mmol/L (3.5-5.1); Sodium 136 mmol/L (136-145)
[2019-07-17 07:12] LABS: Actual Bicarbonate (HCO3a) 17.8 mEq/L (22-28); Base Excess (BEa) -7.1 mEq/L (-2.0 to +3.0); CO2 Tension 33.8 mmHg (35.0-45.0); Calcium, Ionized 1.15 mmol/L (1.12-1.30); Carboxyhemoglobin (COHb) 1.5 gm% (0.0-3.0); Hemoglobin (Hb) 10.1 g/dL (12.0-16.0); O2 Tension (PaO2) 132.8 mmHg (> 70.0); Potassium - ABG Lab 3.78 mmol/L (3.70-5.30); pH, Arterial 7.34 (7.35-7.45)
[2019-07-17 07:28] LABS: Puncture Site RRAD
--- NOTE | 2019-07-17 07:33 | RAD ---
EXAM: Portable chest PROVIDED CLINICAL HISTORY: Respiratory insufficiency COMPARISON: 07/16/2019 FINDINGS: Significant interval change with respect to the prior examination is not apparent. IMPRESSION: As above.
[2019-07-17] MEDS: Enoxaparin Sodium 40 MG/0.4 ML SYRINGE SC SCH (08:00)
[2019-07-17] MEDS: Famotidine/PF 20 mg/2ml Vial SLOW IVP SCH ×2 (08:00→20:11)
[2019-07-17] MEDS: levETIRAcetam 750 MG, Admixture Fee 1 EACH in Sodium Chloride 0.9% 100 ML IVPB SCH ×2 (08:01→20:12)
[2019-07-17 08:53] LABS: #Eosinphils 0.7 thou/uL (0.0-0.7); #Lymphocytes 1.9 thou/uL (1.20-3.40); #Monocytes 1.5 thou/uL (0.11-0.59); #Neutrophils 7.2 thou/uL (1.40-6.50); %Basophils 0.2 % (0.0-1.0); %Eosinophils 6.3 % (0.0-10.0); %Lymphocytes 16.5 % (21.0-51.0); %Monocytes 13.4 % (0.0-10.0); %Neutrophils 63.6 % (42.0-75.0); Hemoglobin 7.8 g/dL (12.0-16.0); Mean Corpuscular HGB CONC 31.3 g/dL (32.0-36.0); Mean Corpuscular Hemoglobin 24.1 pg (27.0-31.0); Mean Platelet Volume 7.4 fL (7.4-10.4); Platelet Count 307 thou/uL (130-400); RBC Distribution Width 17.1 % (11.5-14.5); Red Blood Cell (RBC) Count 3.25 mill/uL (4.20-5.40); White Blood Cell (WBC) Count 11.4 thou/uL (4.8-10.8)
--- NOTE | 2019-07-17 10:46 | PDOC.HOSPP ---
- Subjective Encounter Date: 07/17/19 Encounter Time: 09:50 Subjective: Patient seen and examined. No overnight events - Objective Vital Signs & Weight: Vital Signs (12 hours) Temp Pulse Resp Pulse Ox 07/17/19 10:24 84 07/17/19 10:00 18 07/17/19 08:00 97.6 F 13 07/17/19 06:44 72 11 L 100 07/17/19 06:00 16 07/17/19 04:00 98.2 F 86 10 L 07/17/19 02:00 12 07/17/19 01:55 69 07/17/19 01:54 100 07/17/19 00:00 97.9 F 10 L Weight Admit Weight 160 lb 7.944 oz Weight 169 lb 12.095 oz Most Recent Monitor Data Heart Rate from ECG 82 NIBP 192/81 NIBP BP-Mean 118 Respiration from ECG 19 SpO2 100 I&O: 07/16/19 07/17/19 07/18/19 06:59 06:59 06:59 Intake Total 4742.8 4068.4 Output Total 733 610 105 Balance 4009.8 3458.4 -105 Result Diagrams: 07/17/19 08:45 07/17/19 03:26 Additional Labs: Accuchecks 07/17/19 07/16/19 07/16/19 10:02 21:04 18:01 POC Glucose 147 H 121 H 180 H 07/16/19 12:59 POC Glucose 154 H Radiology Reviewed by me: Yes EKG Reviewed by me: Yes Hospitalist ROS - Review of Systems ROS unobtainable: due to endotracheal tube - Medication Medications: Active Medications Generic Name Dose Route Start Last Admin Trade Name Freq PRN Reason Stop Dose Admin Acetaminophen 650 mg 07/14/19 15:51 07/15/19 03:06 Tylenol NM 650 mg Q4H PRN Administration Headache/Fever/Mild Pain (1-3) Albuterol/Ipratropium 3 ml 07/14/19 19:00 07/17/19 06:44 Duoneb NEB 3 ml [id number] CARL Administration Enoxaparin Sodium 40 mg 07/15/19 09:00 07/17/19 08:00 Lovenox SC 40 mg 0900 CARL Administration Famotidine 20 mg 07/15/19 09:00 07/17/19 08:00 Pepcid SLOW IVP 20 mg BID CARL Administration Levofloxacin 750 mg/ Device 150 mls @ 100 mls/hr 07/15/19 15:00 07/16/19 15: 47 IVPB 150 mls 1500 CARL Administration Sodium Chloride 1,000 mls @ 0 mls/hr 07/14/19 15:51 07/16/19 15:48 Normal Saline 0.9% IV 1,000 mls .Q0M CARL Administration As Directed Sodium Chloride 1,000 mls @ 100 mls/hr 07/14/19 15:51 07/17/19 03:10 Normal Saline 0.9% IV 1,000 mls .Q10H CARL Administration Piperacillin Sod/Tazobactam 100 mls @ 200 mls/hr 07/14/19 18:00 07/17/19 06: 23 Sod 3.375 gm/ Sodium Chloride IVPB 100 mls Q6HR CARL Administration Fentanyl Citrate 2,000 mcg/ 100 mls @ 0 mls/hr 07/14/19 16:43 07/15/19 20:31 Sodium Chloride IV 08/13/19 16:43 100 mls INF CARL Administration Protocol Per Protocol Potassium Chloride 40 meq/ 270 mls @ 67.5 mls/hr 07/14/19 17:34 07/15/19 08: 49 Sodium Chloride IVPB 270 mls ASDIR PRN Administration FOR SERUM K+ 2.5 - 3.5 Levetiracetam 750 mg/ 107.5 mls @ 215 mls/hr 07/15/19 21:00 07/17/19 08:01 Miscellaneous Medication 1 IVPB 107.5 mls each/ Sodium Chloride BID CARL Administration Vancomycin HCl 1.75 gm/ Sodium 500 mls @ 250 mls/hr 07/16/19 20:00 07/16/19 20:20 Chloride IVPB 500 mls 2000 CARL Administration Insulin Human Lispro 0 units 07/14/19 18:16 07/16/19 17:58 Humalog SC 2 unit .MODERATE SLIDING SC PRN Administration Moderate Correctional Scale Lorazepam 2 mg 07/14/19 16:43 07/17/19 01:11 Ativan SLOW IVP 08/13/19 16:43 2 mg Q1H PRN Administration Breakthrough agitation Propofol 1,000 mg 07/14/19 16:43 07/17/19 03:12 Diprivan IV 08/13/19 16:43 1,000 mg INF PRN Administration TO ACHIEVE GOAL RASS Protocol - Exam General Appearance: NAD Eye: PERRL ENT: normocephalic atraumatic Neck: supple, symmetric, no JVD Respiratory: rhonchi, wheezes Gastrointestinal: soft, non-distended, normal bowel sounds Extremities: no cyanosis, no clubbing, no edema Skin: normal turgor Musculoskeletal: normal tone Hosp A/P (1) Acute respiratory failure with hypoxia Code(s): J96.01 - ACUTE RESPIRATORY FAILURE WITH HYPOXIA Status: Acute (2) Pneumonia Code(s): J18.9 - PNEUMONIA, UNSPECIFIED ORGANISM Status: Acute Qualifiers: Pneumonia type: due to unspecified organism Laterality: bilateral Lung location: lower lobe of lung Qualified Code(s): J18.9 - Pneumonia, unspecified organism (3) Sepsis Code(s): A41.9 - SEPSIS, UNSPECIFIED ORGANISM Status: Acute Qualifiers: Sepsis acute organ dysfunction status: with acute organ dysfunction Severe sepsis acute organ dysfunction type: acute respiratory failure Acute respiratory failure type: with hypoxia Severe sepsis shock status: without septic shock (4) Diabetes type 2, controlled Code(s): E11.9 - TYPE 2 DIABETES MELLITUS WITHOUT COMPLICATIONS Status: Chronic Qualifiers: Diabetes mellitus rn long term care insulin use: with rn long term care use (5) Parkinson disease Code(s): G20 - PARKINSON'S DISEASE Status: Chronic (6) Hypothyroidism Code(s): E03.9 - HYPOTHYROIDISM, UNSPECIFIED Status: Chronic (7) Hypertension Code(s): I10 - ESSENTIAL (PRIMARY) HYPERTENSION Status: Chronic (8) Dyslipidemia Code(s): E78.5 - HYPERLIPIDEMIA, UNSPECIFIED Status: Chronic (9) Anxiety and depression Code(s): F41.9 - ANXIETY DISORDER, UNSPECIFIED; F32.9 - MAJOR DEPRESSIVE DISORDER, SINGLE EPISODE, UNSPECIFIED Status: Chronic - Plan old records reviewed/req, continue antibiotics, respiratory therapy 07/15/19- continue vent as per pulmonry, medication reviewed and continue to provide supportive care, 07/16/19- continue zosyn, vancomycin and levaquin, vent as per pulmonary, so far culture negative, medication reviewed as above, symptomatic treatment 07/17/19- continue ventilatory support for now, no new recommendation, medication reviewed and continue to provide symptomatic treatment
[2019-07-17] MEDS: hydrALAZINE 20 MG/ML VIAL SLOW IVP PRN (11:04)
[2019-07-17] MEDS: Sodium Chloride 0.45% 1,000 ML IV SCH (12:49)
--- NOTE | 2019-07-17 13:11 | PRG ---
DATE OF SERVICE: 07/17/2019 SUBJECTIVE: Elvie Oliver is sedated for mechanical ventilation. We will be switching into Precede today to see how she does. OBJECTIVE: VITAL SIGNS: She is afebrile, respiratory rates in the 20s, heart rate is 104, and blood pressure 157/70. LUNGS: Clear, exception of some audible secretions. HEART: Regular rhythm. ABDOMEN: Soft. EXTREMITIES: Without edema. NEURO: Grossly nonfocal. LABORATORY DATA: PH of 7.34, CO2 of 33, and pO2 of 133. Sodium 136, potassium 4.1, chloride 110, bicarb 16, BUN 11, and creatinine 0.74. White count 11.4, hemoglobin 7.8, and platelets 307,000. IMPRESSION: 1. Respiratory failure. 2. Hyperchloremic acidosis. 3. Learning disability with Down's. 4. Bronchospasm yesterday, improved today. 5. Deconditioning. 6. Anemia, it is likely of mixed etiology. PLAN: Continue supportive care. She may be a candidate for weaning and extubation in the next 24 to 48 hours. Job ID: [id number]
[2019-07-17] MEDS: HumaLOG 300 UNITS/3 ML VIAL SC PRN (16:49)
[2019-07-17] MEDS: Vancomycin HCl 1.75 GM in Sodium Chloride 0.9% 500 ML IVPB SCH (20:12)
[2019-07-18] MEDS: Piperacillin/Tazobactam 3.375 GM in Sodium Chloride 0.9% 100 ML IVPB SCH ×4 (00:55→17:01)
[2019-07-18] MEDS: Sodium Chloride 0.45% 1,000 ML IV SCH (06:05)
[2019-07-18] MEDS: HumaLOG 300 UNITS/3 ML VIAL SC PRN ×2 (06:05→09:28)
[2019-07-18 07:15] LABS: Actual Bicarbonate (HCO3a) 20.1 mEq/L (22-28); Base Excess (BEa) -4.4 mEq/L (-2.0 to +3.0); CO2 Tension 34.7 mmHg (35.0-45.0); Calcium, Ionized 1.14 mmol/L (1.12-1.30); Carboxyhemoglobin (COHb) 1.4 gm% (0.0-3.0); Hemoglobin (Hb) 8.9 g/dL (12.0-16.0); O2 Tension (PaO2) 128.3 mmHg (> 70.0); Potassium - ABG Lab 3.99 mmol/L (3.70-5.30); pH, Arterial 7.38 (7.35-7.45)
[2019-07-18 07:24] LABS: ALV-art Gradient 42.225 (0-20); Puncture Site RRA
[2019-07-18] MEDS: hydrALAZINE 20 MG/ML VIAL SLOW IVP PRN (07:24)
[2019-07-18] MEDS: Propofol 1,000 MG/100 ML VIAL IV PRN ×2 (08:39→19:57)
[2019-07-18] MEDS: levETIRAcetam 750 MG, Admixture Fee 1 EACH in Sodium Chloride 0.9% 100 ML IVPB SCH ×2 (08:42→20:53)
[2019-07-18] MEDS: Enoxaparin Sodium 40 MG/0.4 ML SYRINGE SC SCH (08:42)
[2019-07-18] MEDS: Famotidine/PF 20 mg/2ml Vial SLOW IVP SCH ×2 (08:42→20:04)
[2019-07-18] MEDS ORDERED: niCARdipine 40MG In NaCl 40 MG/200 ML BAG IVPB SCH (08:45)
[2019-07-18] MEDS ORDERED: niCARdipine 50 MG in Sodium Chloride 0.9% 250 ML 230 ML IV SCH ×2 (09:30→15:45)
[2019-07-18] MEDS ORDERED: Sodium Chloride 0.45% 1,000 ML IV SCH ×2 (11:07→15:45)
--- NOTE | 2019-07-18 11:54 | PRG ---
DATE OF SERVICE: SUBJECTIVE: Elvie Oliver remains mechanically ventilated. She has copious secretions this morning. Intake and output have been reviewed. She is 12 L ahead since she was admitted to the hospital. Chest x-ray yesterday really did show significant pulmonary edema. OBJECTIVE: LUNGS: Remarkable for rhonchorous wheezes bilaterally. HEART: Regular rhythm. ABDOMEN: Soft. EXTREMITIES: Without asymmetry. PLAN: I have recommended that we repeat a chest x-ray tomorrow. No lab was done today. I have reordered lab. I talked to the sister by phone and explained that I am really not sure where this is going to end up. I encouraged them to consider do not resuscitate status. Also explained to them that if we do get to a point where we could successfully extubate her, I would not want her re-intubated. Sister is in agreement with that, but wants to talk to the other siblings. She says she never wants to have her trach or a PEG, so we will continue to move forward. I have reassured her that we will continue to take care of her aggressively, although her prognosis given her deconditioned state is quite poor. If for hemoglobin drops further tomorrow we will transfuse her. We will diurese her today. She has also been hypertensive with a diastolic of over 100, so I started her on a Cardene drip. Her IVs will be switched to KVO given her excessive volume. PH today 7.38, CO2 34, PO2 128. Hemoglobin on blood gas was 8.9. Sodium is 134, potassium 3.9, chloride 109. Overall, she is stable. Critical care time 30 minutes not including the time spent talking with family. Job ID: [id number]
--- NOTE | 2019-07-18 11:55 | PDOC.HOSPP ---
- Subjective Encounter Date: 07/18/19 Encounter Time: 09:40 Subjective: Patient seen and examined. No new complaints. No overnight events - Objective Vital Signs & Weight: Vital Signs (12 hours) Temp Pulse Pulse Pulse Resp BP BP 07/18/19 10:25 85 07/18/19 10:00 17 07/18/19 08:42 114 H 139 H 150/96 H 07/18/19 08:00 98.8 F 21 H 07/18/19 07:24 72 187/82 H 07/18/19 07:04 72 07/18/19 06:00 14 07/18/19 04:00 98.5 F 07/18/19 03:24 67 125/53 L 07/18/19 02:00 12 07/18/19 00:00 98.4 F 12 BP Pulse Ox Pulse Ox Pulse Ox 07/18/19 10:25 07/18/19 10:00 07/18/19 08:42 146/125 H 95 98 07/18/19 08:00 100 07/18/19 07:24 07/18/19 07:04 07/18/19 06:00 07/18/19 04:00 07/18/19 03:24 07/18/19 02:00 07/18/19 00:00 Weight Admit Weight 160 lb 7.944 oz Weight 179 lb 7.3 oz Most Recent Monitor Data Heart Rate from ECG 75 NIBP 118/47 NIBP BP-Mean 70 Respiration from ECG 16 SpO2 100 I&O: 07/17/19 07/18/19 07/19/19 06:59 06:59 06:59 Intake Total 4068.4 4380.2 240 Output Total 610 735 425 Balance 3458.4 3645.2 -185 Result Diagrams: 07/17/19 08:45 07/17/19 03:26 Additional Labs: Accuchecks 07/18/19 07/18/19 07/17/19 09:29 04:17 22:13 POC Glucose 181 H 185 H 163 H 07/17/19 16:51 POC Glucose 155 H Radiology Reviewed by me: Yes EKG Reviewed by me: Yes Hospitalist ROS - Review of Systems ROS unobtainable: due to endotracheal tube - Medication Medications: Active Medications Generic Name Dose Route Start Last Admin Trade Name Freq PRN Reason Stop Dose Admin Acetaminophen 650 mg 07/14/19 15:51 07/15/19 03:06 Tylenol DC 650 mg Q4H PRN Administration Headache/Fever/Mild Pain (1-3) Albuterol/Ipratropium 3 ml 07/14/19 19:00 07/18/19 07:03 Duoneb NEB 3 ml [id number] CARL Administration Enoxaparin Sodium 40 mg 07/15/19 09:00 07/18/19 08:42 Lovenox SC 40 mg 0900 CARL Administration Famotidine 20 mg 07/15/19 09:00 07/18/19 08:42 Pepcid SLOW IVP 20 mg BID CARL Administration Hydralazine HCl 10 mg 07/15/19 08:06 07/18/19 07:24 Apresoline SLOW IVP 10 mg Q4H PRN Administration SBP > 180 and HR < 70 Levofloxacin 750 mg/ Device 150 mls @ 100 mls/hr 07/15/19 15:00 07/17/19 14: 09 IVPB 150 mls 1500 CARL Administration Sodium Chloride 1,000 mls @ 0 mls/hr 07/14/19 15:51 07/16/19 15:48 Normal Saline 0.9% IV 1,000 mls .Q0M CARL Administration As Directed Piperacillin Sod/Tazobactam 100 mls @ 200 mls/hr 07/14/19 18:00 07/18/19 11: 12 Sod 3.375 gm/ Sodium Chloride IVPB 100 mls Q6HR CARL Administration Fentanyl Citrate 2,000 mcg/ 100 mls @ 0 mls/hr 07/14/19 16:43 07/15/19 20:31 Sodium Chloride IV 08/13/19 16:43 100 mls INF CARL Administration Protocol Per Protocol Potassium Chloride 40 meq/ 270 mls @ 67.5 mls/hr 07/14/19 17:34 07/15/19 08: 49 Sodium Chloride IVPB 270 mls ASDIR PRN Administration FOR SERUM K+ 2.5 - 3.5 Levetiracetam 750 mg/ 107.5 mls @ 215 mls/hr 07/15/19 21:00 07/18/19 08:42 Miscellaneous Medication 1 IVPB 107.5 mls each/ Sodium Chloride BID CARL Administration Vancomycin HCl 1.75 gm/ Sodium 500 mls @ 250 mls/hr 12/21/19 20:00 07/17/19 20:12 Chloride IVPB 500 mls 2000 CARL Administration Dexmedetomidine HCl 200 mcg/ 50 mls @ 0 mls/hr 07/17/19 12:30 07/18/19 11:05 Sodium Chloride IVPB 50 mls INF CARL Administration Protocol Per Protocol Insulin Human Lispro 0 units 07/14/19 18:16 07/18/19 09:28 Humalog SC 2 unit .MODERATE SLIDING SC PRN Administration Moderate Correctional Scale Propofol 1,000 mg 07/14/19 16:43 07/18/19 08:39 Diprivan IV 08/13/19 16:43 1,000 mg INF PRN Administration TO ACHIEVE GOAL RASS Protocol - Exam General Appearance: NAD Eye: PERRL, anicteric sclera ENT: normocephalic atraumatic, no oropharyngeal lesions Neck: supple, symmetric, no JVD Heart: RRR, no murmur, no gallops Respiratory: wheezes Gastrointestinal: soft, non-distended Extremities: no cyanosis Skin: normal turgor Musculoskeletal: normal tone Hosp A/P (1) Acute respiratory failure with hypoxia Code(s): J96.01 - ACUTE RESPIRATORY FAILURE WITH HYPOXIA Status: Acute (2) Pneumonia Code(s): J18.9 - PNEUMONIA, UNSPECIFIED ORGANISM Status: Acute Qualifiers: Pneumonia type: due to unspecified organism Laterality: bilateral Lung location: lower lobe of lung Qualified Code(s): J18.9 - Pneumonia, unspecified organism (3) Sepsis Code(s): A41.9 - SEPSIS, UNSPECIFIED ORGANISM Status: Acute Qualifiers: Sepsis acute organ dysfunction status: with acute organ dysfunction Severe sepsis acute organ dysfunction type: acute respiratory failure Acute respiratory failure type: with hypoxia Severe sepsis shock status: without septic shock (4) Diabetes type 2, controlled Code(s): E11.9 - TYPE 2 DIABETES MELLITUS WITHOUT COMPLICATIONS Status: Chronic 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 (5) Parkinson disease Code(s): G20 - PARKINSON'S DISEASE Status: Chronic (6) Hypothyroidism Code(s): E03.9 - HYPOTHYROIDISM, UNSPECIFIED Status: Chronic (7) Hypertension Code(s): I10 - ESSENTIAL (PRIMARY) HYPERTENSION Status: Chronic (8) Dyslipidemia Code(s): E78.5 - HYPERLIPIDEMIA, UNSPECIFIED Status: Chronic (9) Anxiety and depression Code(s): F41.9 - ANXIETY DISORDER, UNSPECIFIED; F32.9 - MAJOR DEPRESSIVE DISORDER, SINGLE EPISODE, UNSPECIFIED Status: Chronic - Plan old records reviewed/req, continue antibiotics, respiratory therapy 07/15/19- continue vent as per pulmonry, medication reviewed and continue to provide supportive care, 07/16/19- continue zosyn, vancomycin and levaquin, vent as per pulmonary, so far culture negative, medication reviewed as above, symptomatic treatment 07/17/19- continue ventilatory support for now, no new recommendation, medication reviewed and continue to provide symptomatic treatment 07/18/19- continue lasix, cardene drip, not a candidate for weaning given possible fluid overload, continue empiric antibiotics for now,
[2019-07-18] MEDS ORDERED: Furosemide 40 MG/4 ML VIAL SLOW IVP SCH (14:00)
[2019-07-18] MEDS ORDERED: Acetaminophen 650 MG Suppository PR PRN ×2 (15:12→15:44)
[2019-07-18] MEDS ORDERED: Ondansetron PF 4 MG/2 ML Vial IVP PRN (15:27)
[2019-07-18] MEDS ORDERED: DISCONTINUE PREVIOUS NARCOTIC PAIN MEDICATIONS AND BENZODIAZEPINES FS SCH (15:30)
[2019-07-18] MEDS ORDERED: HUMULIN R 100 UNITS in Sodium Chloride 0.9% 100 ML IVPB SCH ×2 (15:30→15:45)
[2019-07-18] MEDS ORDERED: Sodium Chloride 0.9% 1,000 ML IV SCH (15:30)
[2019-07-18] MEDS ORDERED: Morphine 2 MG/ML SYRINGE SLOW IVP PRN (15:32)
[2019-07-18] MEDS ORDERED: Propofol BOLUS 1,000 MG/100 ML VIAL IV PRN (15:32)
[2019-07-18] MEDS ORDERED: Fentanyl BOLUS 250 ML IVPB PRN (15:33)
[2019-07-18] MEDS ORDERED: Potassium Chloride 20 MEQ TAB PO PRN (15:34)
[2019-07-18] MEDS ORDERED: Potassium Chloride 40 MEQ in Premix Bag 1 BAG IVPB PRN (15:35)
[2019-07-18] MEDS ORDERED: Potassium Chloride 40 MEQ in Sodium Chloride 0.9% 250 ML 250 ML IVPB PRN (15:35)
[2019-07-18] MEDS ORDERED: Magnesium Oxide 400 MG TAB PO PRN ×2 (15:36)
[2019-07-18] MEDS ORDERED: CCU ELECTROLYTE REPLACEMENT PROTOCOL FS PRN (15:36)
[2019-07-18] MEDS ORDERED: PHOS-NAK 1 PKT PACK PO PRN ×2 (15:37)
[2019-07-18] MEDS ORDERED: Potassium Phosphate 9 MMOL in Sodium Chloride 0.9% 100 ML IVPB PRN (15:37)
[2019-07-18] MEDS ORDERED: Magnesium 2 GM/50 ML 2 GM in Premix Bag 1 BAG IVPB PRN (15:37)
[2019-07-18] MEDS ORDERED: Potassium Phosphate 12 MMOL in Sodium Chloride 0.9% 250 ML 250 ML IV PRN (15:38)
[2019-07-18] MEDS ORDERED: Potassium Phosphate 15 MMOL in Sodium Chloride 0.9% 250 ML 250 ML IV PRN (15:38)
[2019-07-18] MEDS ORDERED: Dextrose 5% in Water 1,000 ML IV PRN (15:39)
[2019-07-18] MEDS ORDERED: Dextrose 50% Abboject 50 ML SYRINGE SLOW IVP PRN (15:39)
[2019-07-18] MEDS ORDERED: Artificial Tears 18 DROP/0.9 ML EA EYE PRN (15:40)
[2019-07-18] MEDS ORDERED: Cepastat Lozenges 1 LOZ PO PRN (15:41)
[2019-07-18] MEDS ORDERED: Sodium Chloride 0.65% Nasal 44 ML BOT EA NARE PRN (15:41)
[2019-07-18] MEDS ORDERED: hydrALAZINE 20 MG/ML VIAL SLOW IVP PRN (15:41)
[2019-07-18] MEDS ORDERED: fentaNYL Citrate/PF 2,000 MCG in Sodium Chloride 0.9% 60 ML IV SCH (15:45)
[2019-07-18] MEDS: Vancomycin HCl 1.75 GM in Sodium Chloride 0.9% 500 ML IVPB SCH (19:54)
[2019-07-19] MEDS: Piperacillin/Tazobactam 3.375 GM in Sodium Chloride 0.9% 100 ML IVPB SCH ×4 (00:09→17:01)
[2019-07-19 04:48] LABS: Anion Gap 11 mmol/L (10-20); BUN (Urea Nitrogen) 16 mg/dL (9.8-20.1); Calc. Creatinine Clearance 78 mL/min (70-130); Calcium 8.5 mg/dL (7.8-10.44); Carbon Dioxide 24 mmol/L (23-31); Chloride 106 mmol/L (98-107); Estimated GFR-MDRD 75; Glucose 154 mg/dL (83-110); Potassium 3.6 mmol/L (3.5-5.1); Sodium 137 mmol/L (136-145)
[2019-07-19] MEDS: Propofol 1,000 MG/100 ML VIAL IV PRN (05:06)
[2019-07-19] MEDS: Furosemide 40 MG/4 ML VIAL SLOW IVP SCH ×2 (05:06→14:22)
[2019-07-19] MEDS: HumaLOG 300 UNITS/3 ML VIAL SC PRN ×3 (05:06→16:32)
[2019-07-19 05:11] LABS: Mean Corpuscular HGB CONC 31.4 g/dL (32.0-36.0); Mean Corpuscular Hemoglobin 23.7 pg (27.0-31.0); Mean Corpuscular Volume 75.4 fL (78.0-98.0); RBC Distribution Width 17.8 % (11.5-14.5); Red Blood Cell (RBC) Count 3.38 mill/uL (4.20-5.40)
[2019-07-19 05:24] LABS: Band 5 % (5-11); Eosinophils 4 % (0-10); Lymphocytes 9 % (21-51); MDiff Complete? YES; Mean Platelet Volume 7.3 fL (7.4-10.4); Monocytes 4 % (0-10); Neutrophil 77 % (42-75); Platelet Count 303 thou/uL (130-400)
[2019-07-19 06:56] LABS: Base Excess (BEa) -1.7 mEq/L (-2.0 to +3.0); CO2 Tension 38.9 mmHg (35.0-45.0); Calcium, Ionized 1.17 mmol/L (1.12-1.30); Carboxyhemoglobin (COHb) 2.7 gm% (0.0-3.0); Hemoglobin (Hb) 8.6 g/dL (12.0-16.0); Potassium - ABG Lab 3.54 mmol/L (3.70-5.30); pH, Arterial 7.39 (7.35-7.45)
[2019-07-19 07:05] LABS: Puncture Site RRA
[2019-07-19 07:06] LABS: ALV-art Gradient 58.275 (0-20)
[2019-07-19] MEDS: Enoxaparin Sodium 40 MG/0.4 ML SYRINGE SC SCH (08:11)
[2019-07-19] MEDS: Famotidine/PF 20 mg/2ml Vial SLOW IVP SCH ×2 (08:12→20:43)
[2019-07-19] MEDS: levETIRAcetam 750 MG, Admixture Fee 1 EACH in Sodium Chloride 0.9% 100 ML IVPB SCH ×2 (08:24→20:40)
--- NOTE | 2019-07-19 09:37 | RAD ---
Portable frontal chest radiograph: 07/19/2019 COMPARISON: 07/17/2019 HISTORY: Respiratory insufficiency FINDINGS: Nonspecific mild hazy increased density noted in both lung bases. Aeration is slightly impr cinthia within the left base medially when compared to the prior exam. Stable endotracheal tube and nasogastric tube. No lobar consolidation or alveolar edema. IMPRESSION: Portable chest radiograph as detailed above.
--- NOTE | 2019-07-19 10:04 | PRG ---
DATE OF SERVICE: 07/19/2019 SUBJECTIVE: Elvie Oliver remains mechanically ventilated. OBJECTIVE: VITAL SIGNS: She is still on sedation. Oximetry is 100%. FiO2 is 30, heart rate 72, blood pressure 108/48. LUNGS: Remarkable for rhonchi and wheezes, but these are improved compared to yesterday. HEART: Regular rhythm. ABDOMEN: Soft and nontender. EXTREMITIES: Without edema. LABORATORY DATA: White count 9.0, hemoglobin 8.0, platelets 303. Electrolytes are normal. PH 7.39, CO2 38, PO2 107. IMPRESSION: 1. Respiratory failure, slowly weaning. 2. Chronically bedridden and chair-bound state with severe learning disability. 3. We will check a chest x-ray in the morning. 4. We will decrease her IMV to 6. 5. In the morning, we will decrease her IMV to 2, working toward weaning. I have also already broached the subject with sister about end of life issues, do not resuscitate status, etc. I have encouraged them to make a family decision before we extubate her. Job ID: [id number]
--- NOTE | 2019-07-19 11:17 | PDOC.HOSPP ---
- Subjective Encounter Date: 07/19/19 Encounter Time: 09:45 Subjective: pt is on ventilator, no overnight event - Objective Vital Signs & Weight: Vital Signs (12 hours) Temp Pulse Resp BP Pulse Ox 07/19/19 11:00 98.8 F 07/19/19 10:06 76 07/19/19 10:00 15 07/19/19 08:00 18 100 07/19/19 07:00 98.5 F 07/19/19 06:37 65 07/19/19 06:00 17 07/19/19 04:18 65 07/19/19 04:00 98.7 F 15 07/19/19 02:00 10 L 07/19/19 00:00 98.9 F 14 07/18/19 23:29 79 139/68 Weight Admit Weight 160 lb 7.944 oz Weight 176 lb 5.917 oz Most Recent Monitor Data Heart Rate from ECG 76 NIBP 141/62 NIBP BP-Mean 88 Respiration from ECG 18 SpO2 100 I&O: 07/18/19 07/19/19 07/20/19 06:59 06:59 06:59 Intake Total 4380.2 3626.0 385 Output Total 735 3625 2225 Balance 3645.2 1.0 -1840 Result Diagrams: 07/19/19 04:00 07/19/19 04:00 Additional Labs: Accuchecks 07/19/19 07/19/19 07/18/19 10:06 04:03 22:09 POC Glucose 176 H 170 H 147 H 07/18/19 16:08 POC Glucose 146 H Radiology Reviewed by me: Yes EKG Reviewed by me: Yes Hospitalist ROS - Review of Systems ROS unobtainable: due to endotracheal tube - Medication Medications: Active Medications Generic Name Dose Route Start Last Admin Trade Name Freq PRN Reason Stop Dose Admin Albuterol/Ipratropium 3 ml 07/18/19 19:00 07/19/19 06:37 Duoneb NEB 3 ml [id number] CARL Administration Enoxaparin Sodium 40 mg 07/19/19 09:00 07/19/19 08:11 Lovenox SC 40 mg 0900 CARL Administration Famotidine 20 mg 07/18/19 21:00 07/19/19 08:12 Pepcid SLOW IVP 20 mg BID CARL Administration Furosemide 40 mg 07/19/19 06:00 07/19/19 05:06 Lasix SLOW IVP 40 mg 0600,1400 CARL Administration Piperacillin Sod/Tazobactam 100 mls @ 200 mls/hr 07/18/19 18:00 07/19/19 05: 06 Sod 3.375 gm/ Sodium Chloride IVPB 100 mls Q6HR CARL Administration Levetiracetam 750 mg/ 107.5 mls @ 215 mls/hr 07/18/19 21:00 07/19/19 08:24 Miscellaneous Medication 1 IVPB 107.5 mls each/ Sodium Chloride BID CARL Administration Vancomycin HCl 1.75 gm/ Sodium 500 mls @ 250 mls/hr 07/18/19 20:00 07/18/19 19:54 Chloride IVPB 500 mls 2000 CARL Administration Dexmedetomidine HCl 200 mcg/ 50 mls @ 0 mls/hr 07/18/19 15:45 07/19/19 05:06 Sodium Chloride IVPB 50 mls INF CARL Administration Protocol Per Protocol Insulin Human Lispro 0 units 07/18/19 15:40 07/19/19 10:04 Humalog SC 2 unit .MODERATE SLIDING SC PRN Administration Moderate Correctional Scale Propofol 1,000 mg 07/18/19 15:29 07/19/19 05:06 Diprivan IV 08/13/19 16:43 1,000 mg INF PRN Administration TO ACHIEVE GOAL RASS Protocol - Exam General Appearance: NAD Eye: anicteric sclera ENT: normocephalic atraumatic Neck: supple, symmetric Heart: RRR, no murmur Respiratory: wheezes Gastrointestinal: soft, non-distended Extremities: no edema Skin: normal turgor Musculoskeletal: normal tone Hosp A/P (1) Acute respiratory failure with hypoxia Code(s): J96.01 - ACUTE RESPIRATORY FAILURE WITH HYPOXIA Status: Acute (2) Pneumonia Code(s): J18.9 - PNEUMONIA, UNSPECIFIED ORGANISM Status: Acute Qualifiers: Pneumonia type: due to unspecified organism Laterality: bilateral Lung location: lower lobe of lung Qualified Code(s): J18.9 - Pneumonia, unspecified organism (3) Sepsis Code(s): A41.9 - SEPSIS, UNSPECIFIED ORGANISM Status: Acute Qualifiers: Sepsis acute organ dysfunction status: with acute organ dysfunction Severe sepsis acute organ dysfunction type: acute respiratory failure Acute respiratory failure type: with hypoxia Severe sepsis shock status: without septic shock (4) Diabetes type 2, controlled Code(s): E11.9 - TYPE 2 DIABETES MELLITUS WITHOUT COMPLICATIONS Status: Chronic Qualifiers: Diabetes mellitus residential insulin use: with residential use (5) Parkinson disease Code(s): G20 - PARKINSON'S DISEASE Status: Chronic (6) Hypothyroidism Code(s): E03.9 - HYPOTHYROIDISM, UNSPECIFIED Status: Chronic (7) Hypertension Code(s): I10 - ESSENTIAL (PRIMARY) HYPERTENSION Status: Chronic (8) Dyslipidemia Code(s): E78.5 - HYPERLIPIDEMIA, UNSPECIFIED Status: Chronic (9) Anxiety and depression Code(s): F41.9 - ANXIETY DISORDER, UNSPECIFIED; F32.9 - MAJOR DEPRESSIVE DISORDER, SINGLE EPISODE, UNSPECIFIED Status: Chronic - Plan old records reviewed/req, continue antibiotics, respiratory therapy Consults: Palliative Care 07/15/19- continue vent as per pulmonry, medication reviewed and continue to provide supportive care, 07/16/19- continue zosyn, vancomycin and levaquin, vent as per pulmonary, so far culture negative, medication reviewed as above, symptomatic treatment 07/17/19- continue ventilatory support for now, no new recommendation, medication reviewed and continue to provide symptomatic treatment 07/18/19- continue lasix, cardene drip, not a candidate for weaning given possible fluid overload, continue empiric antibiotics for now, 07/19/19, slow weaning is ongoing, will consult palliative care for goal of care , on vancomycin and zosyn, sedated, continue lasix, medication reviewed and continue to provide symptomatic treatment, vent as per pulmonary.
[2019-07-19] MEDS: Vancomycin HCl 1.75 GM in Sodium Chloride 0.9% 500 ML IVPB SCH (20:40)
[2019-07-20] MEDS: Piperacillin/Tazobactam 3.375 GM in Sodium Chloride 0.9% 100 ML IVPB SCH ×4 (00:18→17:27)
[2019-07-20] MEDS: HumaLOG 300 UNITS/3 ML VIAL SC PRN ×3 (05:20→22:21)
[2019-07-20] MEDS: Furosemide 40 MG/4 ML VIAL SLOW IVP SCH ×2 (05:20→13:23)
[2019-07-20 05:55] LABS: Band 1 % (5-11); Eosinophils 4 % (0-10); Hemoglobin 8.1 g/dL (12.0-16.0); Lymphocytes 8 % (21-51); MDiff Complete? YES; Mean Corpuscular HGB CONC 31.9 g/dL (32.0-36.0); Mean Corpuscular Hemoglobin 23.7 pg (27.0-31.0); Mean Corpuscular Volume 74.4 fL (78.0-98.0); Mean Platelet Volume 7.3 fL (7.4-10.4); Monocytes 8 % (0-10); Myelocyte 1 % (0-0); Neutrophil 78 % (42-75); Platelet Count 281 thou/uL (130-400); RBC Distribution Width 17.8 % (11.5-14.5); Red Blood Cell (RBC) Count 3.41 mill/uL (4.20-5.40); White Blood Cell (WBC) Count 9.6 thou/uL (4.8-10.8)
[2019-07-20 05:58] LABS: Anion Gap 12 mmol/L (10-20); BUN (Urea Nitrogen) 20 mg/dL (9.8-20.1); Calc. Creatinine Clearance 62 mL/min (70-130); Calcium 8.8 mg/dL (7.8-10.44); Carbon Dioxide 29 mmol/L (23-31); Chloride 102 mmol/L (98-107); Estimated GFR-MDRD 58; Glucose 156 mg/dL (83-110); Potassium 3.2 mmol/L (3.5-5.1); Sodium 140 mmol/L (136-145)
[2019-07-20 07:29] LABS: Actual Bicarbonate (HCO3a) 24.3 mEq/L (22-28); Base Excess (BEa) 1.8 mEq/L (-2.0 to +3.0); CO2 Tension 29.9 mmHg (35.0-45.0); Calcium, Ionized 1.11 mmol/L (1.12-1.30); Carboxyhemoglobin (COHb) 0.8 gm% (0.0-3.0); O2 Tension (PaO2) 120.4 mmHg (> 70.0); Potassium - ABG Lab 3.63 mmol/L (3.70-5.30); pH, Arterial 7.53 (7.35-7.45)
[2019-07-20 07:33] LABS: Puncture Site LRA
[2019-07-20 07:34] LABS: ALV-art Gradient 56.125 (0-20)
[2019-07-20] MEDS: Enoxaparin Sodium 40 MG/0.4 ML SYRINGE SC SCH (08:06)
[2019-07-20] MEDS: Famotidine/PF 20 mg/2ml Vial SLOW IVP SCH ×2 (08:06→19:59)
[2019-07-20] MEDS: levETIRAcetam 750 MG, Admixture Fee 1 EACH in Sodium Chloride 0.9% 100 ML IVPB SCH ×2 (08:14→19:56)
--- NOTE | 2019-07-20 09:47 | PRG ---
DATE OF SERVICE: 07/20/2019 TIME SPENT: 35 minutes of critical care time. SUBJECTIVE: The patient remains intubated on mechanical ventilation. She is on minimal settings> OBJECTIVE: VITAL SIGNS: Temperature is 98.8, pulse 93, blood pressure 168/72, O2 saturation 95%. 24-hour intake 3164, output 5630. HEENT: She has choreiform movements of her head. NECK: No adenopathy or JVD. LUNGS: Clear anteriorly. CARDIOVASCULAR: S1, S2 regular without murmur. ABDOMEN: Soft, obese, nontender, nondistended. EXTREMITIES: Edematous arms and legs. LABORATORY DATA: Sodium 140, potassium 3.2, chloride 102, CO2 of 29, BUN 20, creatinine 0.9, glucose 156. White blood cell count 9.6, hematocrit 25.3, and platelet count 281. PH of 7.53, pCO2 of 29, pO2 tidal volume 470, PEEP 5, pressure support 10, FiO2 of 30%. Her chest x-ray is actually fairly clear. ASSESSMENT: 1. Acute respiratory failure requiring mechanical ventilation. 2. Chronically bedridden state with severe learning disability. 3. Anasarca. PLAN: Family is supposed to arrive this afternoon. Hopefully, we can have a discussion about end of life care and extubating, but not re-intubating if she fails. She seems to be stable otherwise. We will follow. Job ID: [id number]
--- NOTE | 2019-07-20 13:11 | PDOC.HOSPP ---
- Subjective Encounter Date: 07/20/19 Encounter Time: 13:11 non-verbal Subjective: On CPAP trials this AM. Patient has had diarrhea according to staff with loose stools but no blood or pus. - Objective Vital Signs & Weight: Vital Signs (12 hours) Temp Pulse Resp BP Pulse Ox 07/20/19 12:50 108 H 174/71 H 07/20/19 12:48 110 H 18 99 07/20/19 12:04 166/62 H 07/20/19 12:00 16 07/20/19 11:00 100.4 F H 07/20/19 10:52 166/62 H 07/20/19 10:00 16 07/20/19 08:00 19 95 07/20/19 07:00 98.8 F 07/20/19 06:36 76 155/65 H 07/20/19 06:31 73 12 99 07/20/19 06:00 16 07/20/19 04:00 98.5 F 07/20/19 02:24 67 111/39 L 07/20/19 02:00 16 Weight Admit Weight 160 lb 7.944 oz Weight 173 lb 4.533 oz Most Recent Monitor Data Heart Rate from ECG 113 NIBP 141/50 NIBP BP-Mean 80 Respiration from ECG 15 SpO2 96 I&O: 07/19/19 07/20/19 07/21/19 06:59 06:59 06:59 Intake Total 3626.0 3164.1 Output Total 3625 5630 2175 Balance 1.0 -2465.9 -2175 Result Diagrams: 07/20/19 03:18 07/20/19 03:18 Additional Labs: Accuchecks 07/20/19 07/20/19 07/19/19 10:35 05:21 22:05 POC Glucose 149 H 181 H 124 H 07/19/19 16:35 POC Glucose 159 H Hospitalist ROS - Review of Systems ROS unobtainable: due to mental status - Medication Medications: Active Medications Generic Name Dose Route Start Last Admin Trade Name Freq PRN Reason Stop Dose Admin Enoxaparin Sodium 40 mg 07/19/19 09:00 07/20/19 08:06 Lovenox SC 40 mg 0900 CARL Administration Famotidine 20 mg 07/18/19 21:00 07/20/19 08:06 Pepcid SLOW IVP 20 mg BID CARL Administration Furosemide 40 mg 07/19/19 06:00 07/20/19 05:20 Lasix SLOW IVP 40 mg 0600,1400 CARL Administration Piperacillin Sod/Tazobactam 100 mls @ 200 mls/hr 07/18/19 18:00 07/20/19 11: 56 Sod 3.375 gm/ Sodium Chloride IVPB 100 mls Q6HR CARL Administration Levetiracetam 750 mg/ 107.5 mls @ 215 mls/hr 07/18/19 21:00 07/20/19 08:14 Miscellaneous Medication 1 IVPB 107.5 mls each/ Sodium Chloride BID CARL Administration Vancomycin HCl 1.75 gm/ Sodium 500 mls @ 250 mls/hr 07/18/19 20:00 07/19/19 20:40 Chloride IVPB 500 mls 2000 CARL Administration Levofloxacin 750 mg/ Device 150 mls @ 100 mls/hr 07/19/19 15:00 07/19/19 14: 31 IVPB 150 mls 1500 CARL Administration Dexmedetomidine HCl 400 mcg/ 100 mls @ 0 mls/hr 07/19/19 21:00 07/19/19 21:37 Sodium Chloride IVPB 100 mls INF CARL Administration Protocol Per Protocol Insulin Human Lispro 0 units 07/18/19 15:40 07/20/19 05:20 Humalog SC 2 unit .MODERATE SLIDING SC PRN Administration Moderate Correctional Scale Potassium Chloride 40 meq 07/18/19 15:34 07/20/19 06:23 Klor-Con PER TUBE 40 meq ASDIR PRN Administration FOR SERUM K+ 2.5-3.5 Propofol 1,000 mg 07/18/19 15:29 07/19/19 05:06 Diprivan IV 08/13/19 16:43 1,000 mg INF PRN Administration TO ACHIEVE GOAL RASS Protocol - Exam General Appearance: awake alert, ill appearing ENT: normocephalic atraumatic, moist mucosa Heart: no gallops, no rubs, irregular Heart - other findings: tachycardia present Respiratory: no wheezes, no rales, no ronchi, normal chest expansion Gastrointestinal: soft, non-tender, non-distended Gastrointestinal - other findings: Valencia in place with clear urine Skin: normal turgor, no lesions Hosp A/P (1) Acute respiratory failure with hypoxia Code(s): J96.01 - ACUTE RESPIRATORY FAILURE WITH HYPOXIA Status: Acute (2) Pneumonia Code(s): J18.9 - PNEUMONIA, UNSPECIFIED ORGANISM Status: Acute Qualifiers: Pneumonia type: due to unspecified organism Laterality: bilateral Lung location: lower lobe of lung Qualified Code(s): J18.9 - Pneumonia, unspecified organism (3) Diabetes type 2, controlled Code(s): E11.9 - TYPE 2 DIABETES MELLITUS WITHOUT COMPLICATIONS Status: Chronic Qualifiers: Diabetes mellitus adjunct faculty for medical terminology insulin use: with nursing home use Diabetes mellitus complication status: without complication Qualified Code(s): E11.9 - Type 2 diabetes mellitus without complications; Z79.4 - nursing home (current) use of insulin (4) Dyslipidemia Code(s): E78.5 - HYPERLIPIDEMIA, UNSPECIFIED Status: Chronic (5) Hypertension Code(s): I10 - ESSENTIAL (PRIMARY) HYPERTENSION Status: Chronic Qualifiers: Hypertension type: essential hypertension Qualified Code(s): I10 - Essential (primary) hypertension (6) Hypothyroidism Code(s): E03.9 - HYPOTHYROIDISM, UNSPECIFIED Status: Chronic Qualifiers: Hypothyroidism type: acquired Qualified Code(s): E03.9 - Hypothyroidism, unspecified (7) Parkinson disease Code(s): G20 - PARKINSON'S DISEASE Status: Chronic - Plan Hosp A/P (1) Acute respiratory failure with hypoxia Related to pneumonia On vent and on CPAP trials now Mgmt. per freight hustler Continue duonebs (2) Pneumonia On vanco & zosyn Continue nebs (3) Sepsis Rleated to pneumonia (4) Diabetes type 2, controlled On tube feeds now Continue SSI Monitor sugars and adjust regimen (5) Parkinson disease Home meds reconciled and sinemet resumed today Will monitor symptoms with resumption of the home meds (6) Hypothyroidism Home dose of synthroid resumed (7) Hypertension Start coreg for control of heart rate and BP Monitor BP and adjust regimen (8) Dyslipidemia (9) Anxiety and depression 10. Diarrhea Insert fecal management system If profuse, will consider stool testing
[2019-07-20] MEDS: Trihexyphenidyl 2 MG TAB PO SCH ×2 (14:04→19:59)
[2019-07-20] MEDS ORDERED: LEVODOPA PO SCH (15:00)
[2019-07-20] MEDS ORDERED: CARBIDOPA PO SCH (15:00)
[2019-07-20] MEDS ORDERED: ENTACAPONE PO SCH (15:00)
[2019-07-20] MEDS: Carvedilol 6.25 MG TAB PO SCH (16:44)
--- NOTE | 2019-07-20 16:54 | PDOC.FMACP ---
Advance Care Planning - Problem (1) Acute respiratory failure with hypoxia Status: Acute Code(s): J96.01 - ACUTE RESPIRATORY FAILURE WITH HYPOXIA (2) Pneumonia Status: Acute Code(s): J18.9 - PNEUMONIA, UNSPECIFIED ORGANISM Qualifiers: Pneumonia type: due to unspecified organism Laterality: bilateral Lung location: lower lobe of lung Qualified Code(s): J18.9 - Pneumonia, unspecified organism (3) Diabetes type 2, controlled Status: Chronic Code(s): E11.9 - TYPE 2 DIABETES MELLITUS WITHOUT COMPLICATIONS Qualifiers: Diabetes mellitus termite control representative insulin use: with intermediate use Diabetes mellitus complication status: without complication Qualified Code(s): E11.9 - Type 2 diabetes mellitus without complications; Z79.4 - termite treater helper (current) use of insulin (4) Dyslipidemia Status: Chronic Code(s): E78.5 - HYPERLIPIDEMIA, UNSPECIFIED (5) Hypertension Status: Chronic Code(s): I10 - ESSENTIAL (PRIMARY) HYPERTENSION Qualifiers: Hypertension type: essential hypertension Qualified Code(s): I10 - Essential (primary) hypertension (6) Hypothyroidism Status: Chronic Code(s): E03.9 - HYPOTHYROIDISM, UNSPECIFIED Qualifiers: Hypothyroidism type: acquired Qualified Code(s): E03.9 - Hypothyroidism, unspecified (7) Parkinson disease Status: Chronic Code(s): G20 - PARKINSON'S DISEASE - Note Participants: family, surrogate decision-maker Summary: Advanced Care Planning was discussed. The diagnosis, prognosis and goals of care were discussed. Appropriate forms and documentation to accomplish the goals of care were discussed. All questions were answered. The patient's sister who is the POA has stated that the family wouldn't want CPR in the event of a cardiac arrest After extubation, POA stated that the family would not want reintubtion if her respiratory status worsens Out of hospital DNR form filled by POA and signed. Orders placed for DNR in CPOE Time Spent (mins): 20
[2019-07-20] MEDS: Vancomycin HCl 1.75 GM in Sodium Chloride 0.9% 500 ML IVPB SCH (19:58)
[2019-07-20] MEDS: busPIRone HCl 10 MG TAB PO SCH (19:59)
[2019-07-20] MEDS: Loratadine 10 MG TAB PO SCH (19:59)
[2019-07-21] MEDS: Piperacillin/Tazobactam 3.375 GM in Sodium Chloride 0.9% 100 ML IVPB SCH ×5 (00:13→23:41)
[2019-07-21] MEDS: Furosemide 40 MG/4 ML VIAL SLOW IVP SCH ×2 (05:27→14:00)
[2019-07-21] MEDS: Levothyroxine Sodium 50 MCG TAB PO SCH (05:27)
[2019-07-21 05:53] LABS: ALT (SGPT) 30 U/L (8-55); AST (SGOT) 26 U/L (5-34); Albumin 3.2 g/dL (3.4-4.8); Alkaline Phosphatase 88 U/L (40-110); Anion Gap 15 mmol/L (10-20); BUN (Urea Nitrogen) 24 mg/dL (9.8-20.1); Bilirubin, Total 0.4 mg/dL (0.2-1.2); Calc. Creatinine Clearance 55 mL/min (70-130); Carbon Dioxide 29 mmol/L (23-31); Chloride 100 mmol/L (98-107); Estimated GFR-MDRD 52; Glucose 156 mg/dL (83-110); Protein, Total 6.2 g/dL (6.0-8.3); Sodium 141 mmol/L (136-145)
[2019-07-21 05:54] LABS: Band 9 % (5-11); Elliptocytes SLIGHT = 2-5 cells (100X) (0-1/hpf); Eosinophils 5 % (0-10); Hemoglobin 8.1 g/dL (12.0-16.0); Lymphocytes 11 % (21-51); MDiff Complete? YES; Mean Corpuscular HGB CONC 31.7 g/dL (32.0-36.0); Mean Corpuscular Hemoglobin 23.6 pg (27.0-31.0); Mean Corpuscular Volume 74.4 fL (78.0-98.0); Mean Platelet Volume 7.3 fL (7.4-10.4); Monocytes 9 % (0-10); Neutrophil 66 % (42-75); Platelet Count 295 thou/uL (130-400); RBC Distribution Width 17.7 % (11.5-14.5); Red Blood Cell (RBC) Count 3.45 mill/uL (4.20-5.40); White Blood Cell (WBC) Count 11.6 thou/uL (4.8-10.8)
[2019-07-21 05:57] LABS: Potassium 2.9 mmol/L (3.5-5.1)
[2019-07-21] MEDS: HumaLOG 300 UNITS/3 ML VIAL SC PRN ×3 (06:01→16:39)
[2019-07-21 07:08] LABS: Actual Bicarbonate (HCO3a) 25.7 mEq/L (22-28); Base Excess (BEa) 4.7 mEq/L (-2.0 to +3.0); Calcium, Ionized 1.12 mmol/L (1.12-1.30); Hemoglobin (Hb) 8.6 g/dL (12.0-16.0); O2 Tension (PaO2) 99.5 mmHg (> 70.0)
[2019-07-21 07:14] LABS: ALV-art Gradient 18.355 (0-20); CO2 Tension 25.5 mmHg (35.0-45.0); Puncture Site LRA; pH, Arterial 7.62 (7.35-7.45)
[2019-07-21] MEDS: Carvedilol 6.25 MG TAB PO SCH ×3 (08:32→16:37)
[2019-07-21] MEDS: Allopurinol 100 MG TAB PO SCH (08:32)
[2019-07-21] MEDS: Enoxaparin Sodium 40 MG/0.4 ML SYRINGE SC SCH (08:33)
[2019-07-21] MEDS: DULoxetine 60 MG CAP PO SCH (08:33)
[2019-07-21] MEDS: Aspirin 81 mg Enteric Coated Tablet PO SCH (08:33)
[2019-07-21] MEDS: Clopidogrel Bisulfate 75 MG TAB PO SCH (08:33)
[2019-07-21] MEDS: Famotidine/PF 20 mg/2ml Vial SLOW IVP SCH ×2 (08:33→21:03)
[2019-07-21] MEDS: levETIRAcetam 750 MG, Admixture Fee 1 EACH in Sodium Chloride 0.9% 100 ML IVPB SCH ×2 (08:34→21:03)
[2019-07-21] MEDS: busPIRone HCl 10 MG TAB PO SCH ×2 (08:56→21:03)
[2019-07-21] MEDS: Trihexyphenidyl 2 MG TAB PO SCH ×3 (09:00→21:03)
--- NOTE | 2019-07-21 09:32 | PDOC.PALCO ---
Palliative Care Consult - Consult Details Requesting Physician: Dr Tavarez Reason for Consult: goals of care, family support Family Members Present: None, Patient sister /Also KOBY is arriving around noon as per phone conver - Pertinent HPI 79 year old female who resides at a senior living with downs syndrome. Recently in the past month it is reported syncope x2, with fall 07/13 that was reported to be unremarkable and subsequent transfer to the emergency room 07/13 with slurred speech and tremors. At emergency room patient was noted to have hemiplegia and hypotension, eventually intubated and sedated secondary to respiratory acidosis and admitted to CCU for higher level of care. Patient sister has met with Pulmonology and Hospitalist, made a DNAR and is to be extubated with no plans to reintubate if needed. - Pertinent PMH Downs Syndrome, DM II, Hypertension, hypothyroid, Parkinsons disease, renal cell carcinoma - Social History Smoking Status: Never smoker Smoking: no tobacco exposure Alcohol Use: none Drug Use History: none Living Situation: senior living resident - Medications MAR Reviewed: Yes - Allergies Allergies/Adverse Reactions: Allergies Allergy/AdvReac Type Severity Reaction Status Date / Time No Known Allergies Allergy Verified 07/14/19 16:58 - Subjective Mechanical ventilation, open eyes but returns to sleep state - ROS Non Response: due to endotracheal tube, due to mental status - Objective Vital Signs: Vital Signs - Most Recent Temp Pulse Resp BP Pulse Ox 99.1 F 91 15 160/78 H 96 07/21/19 08:00 07/21/19 06:21 07/21/19 08:00 07/21/19 08:32 07/20/19 20:00 Palliative Performance Scale: 20 - Advance Directives Medical Power of Computer Video Game Designer: Rachelle patient sister - Physical Exam Constitutional: encephalitic, ill appearing HEENT: moist MMs, sclera anicteric Respiratory: no wheezing, diminished lung sound Deviation from normal: Mechanical ventilation Cardiovascular: irregular Deviation from normal: perioribital edema Gastrointestinal: non-tender, positive bowel sounds, incontinent Genitourinary: mckeon catheter (Clear light yellow urine) Musculoskeletal: no cyanosis, edema present Deviation from normal: unable to fully assess as sedated and mechanically intubated Skin: bruising, fragile Deviation from normal: Mechanical ventilation, - Problem List (1) Palliative care encounter Code(s): Z51.5 - ENCOUNTER FOR PALLIATIVE CARE Current Visit: Yes Status: Acute (2) Acute respiratory failure with hypoxia Code(s): J96.01 - ACUTE RESPIRATORY FAILURE WITH HYPOXIA Current Visit: Yes Status: Acute (3) Pneumonia Code(s): J18.9 - PNEUMONIA, UNSPECIFIED ORGANISM Current Visit: Yes Status: Acute Qualifiers: Pneumonia type: due to unspecified organism Laterality: bilateral Lung location: lower lobe of lung Qualified Code(s): J18.9 - Pneumonia, unspecified organism (4) Sepsis Code(s): A41.9 - SEPSIS, UNSPECIFIED ORGANISM Current Visit: Yes Status: Acute Qualifiers: Sepsis acute organ dysfunction status: with acute organ dysfunction Severe sepsis acute organ dysfunction type: acute respiratory failure Acute respiratory failure type: with hypoxia Severe sepsis shock status: without septic shock - Plan/Recommendations Plan: Patient sister aware of current health status of patient, transitioned her to DNAR yesterday with the hope of extubating to day. Desicion also not to reintubate if needed in the future. Will return to provide support for the sister and any additional assistance to revisit goals of care. [45] minutes spent on this encounter with >50% of the time in counseling and coordination of care. Thank you for this very appropriate consult.
--- NOTE | 2019-07-21 10:33 | PDOC.HOSPP ---
- Subjective Encounter Date: 07/21/19 Encounter Time: 10:10 Subjective: Intubated and sedated on vent. Unable to obtain history or review of systems. - Objective Vital Signs & Weight: Vital Signs (12 hours) Temp Pulse Resp BP Pulse Ox 07/21/19 10:00 15 07/21/19 08:32 160/78 H 07/21/19 08:00 99.1 F 15 97 07/21/19 06:21 91 172/71 H 07/21/19 06:00 13 07/21/19 04:00 98.9 F 15 07/21/19 02:10 82 181/79 H 07/21/19 02:00 15 07/21/19 00:45 79 133/43 L 07/21/19 00:00 99.5 F 16 Weight Admit Weight 160 lb 7.944 oz Weight 170 lb 10.205 oz Most Recent Monitor Data Heart Rate from ECG 72 NIBP 175/78 NIBP BP-Mean 110 Respiration from ECG 22 SpO2 95 I&O: 07/20/19 07/21/19 07/22/19 06:59 06:59 06:59 Intake Total 3164.1 2734.8 100 Output Total 5630 4022 1790 Balance -2465.9 -1287.2 -1690 Result Diagrams: 07/21/19 05:25 07/21/19 05:25 Additional Labs: Accuchecks 07/21/19 07/20/19 07/20/19 05:27 22:06 16:56 POC Glucose 174 H 171 H 195 H 07/20/19 07/20/19 15:31 10:35 POC Glucose 194 H 149 H Hospitalist ROS - Review of Systems ROS unobtainable: due to endotracheal tube - Medication Medications: Active Medications Generic Name Dose Route Start Last Admin Trade Name Freq PRN Reason Stop Dose Admin Allopurinol 100 mg 07/21/19 09:00 07/21/19 08:32 Zyloprim PO 100 mg DAILY CARL Administration Aspirin 81 mg 07/21/19 09:00 07/21/19 08:33 Ecotrin PO 81 mg DAILY CARL Administration Buspirone HCl 15 mg 07/20/19 21:00 07/21/19 08:56 Buspar PO 15 mg BID CARL Administration Carvedilol 6.25 mg 07/20/19 17:00 07/21/19 08:32 Coreg PO 6.25 mg BID-WM CARL Administration Clopidogrel Bisulfate 75 mg 07/21/19 09:00 07/21/19 08:33 Plavix PO 75 mg DAILY CARL Administration Duloxetine HCl 60 mg 07/21/19 09:00 07/21/19 08:33 Cymbalta PO 60 mg DAILY CARL Administration Enoxaparin Sodium 40 mg 07/19/19 09:00 07/21/19 08:33 Lovenox SC 40 mg 0900 CARL Administration Famotidine 20 mg 07/18/19 21:00 07/21/19 08:33 Pepcid SLOW IVP 20 mg BID CARL Administration Furosemide 40 mg 07/19/19 06:00 07/21/19 05:27 Lasix SLOW IVP 40 mg 0600,1400 CARL Administration Piperacillin Sod/Tazobactam 100 mls @ 200 mls/hr 07/18/19 18:00 07/21/19 05: 27 Sod 3.375 gm/ Sodium Chloride IVPB 100 mls Q6HR CARL Administration Levetiracetam 750 mg/ 107.5 mls @ 215 mls/hr 07/18/19 21:00 07/21/19 08:34 Miscellaneous Medication 1 IVPB 107.5 mls each/ Sodium Chloride BID CARL Administration Vancomycin HCl 1.75 gm/ Sodium 500 mls @ 250 mls/hr 07/18/19 20:00 07/20/19 19:58 Chloride IVPB 500 mls 2000 CARL Administration Levofloxacin 750 mg/ Device 150 mls @ 100 mls/hr 07/19/19 15:00 07/20/19 14: 05 IVPB 150 mls 1500 CARL Administration Dexmedetomidine HCl 400 mcg/ 100 mls @ 0 mls/hr 07/19/19 21:00 07/20/19 17:49 Sodium Chloride IVPB 100 mls INF CARL Administration Protocol Per Protocol Insulin Human Lispro 0 units 07/18/19 15:40 07/21/19 06:01 Humalog SC 2 unit .MODERATE SLIDING SC PRN Administration Moderate Correctional Scale Levothyroxine Sodium 50 mcg 07/21/19 06:00 07/21/19 05:27 Synthroid PO 50 mcg 0600 CARL Administration Loratadine 10 mg 07/20/19 21:00 07/20/19 19:59 Claritin PO 10 mg HS CARL Administration Potassium Chloride 40 meq 07/18/19 15:34 07/21/19 06:02 Klor-Con PER TUBE 40 meq ASDIR PRN Administration FOR SERUM K+ 2.5-3.5 Propofol 1,000 mg 07/18/19 15:29 07/19/19 05:06 Diprivan IV 08/13/19 16:43 1,000 mg INF PRN Administration TO ACHIEVE GOAL RASS Protocol Trihexyphenidyl HCl 2 mg 07/20/19 15:00 07/20/19 19:59 Artane PO 2 mg TID CARL Administration - Exam ENT: normocephalic atraumatic, no oropharyngeal lesions Neck: supple, symmetric, no thyromegaly Heart: RRR, no murmur, no gallops, no rubs, normal peripheral pulses Respiratory: CTAB, no wheezes, no ronchi Gastrointestinal: soft, non-tender, non-distended, normal bowel sounds Hosp A/P (1) Acute respiratory failure with hypoxia Code(s): J96.01 - ACUTE RESPIRATORY FAILURE WITH HYPOXIA Status: Acute (2) Pneumonia Code(s): J18.9 - PNEUMONIA, UNSPECIFIED ORGANISM Status: Acute Qualifiers: Pneumonia type: due to unspecified organism Laterality: bilateral Lung location: lower lobe of lung Qualified Code(s): J18.9 - Pneumonia, unspecified organism (3) Diabetes type 2, controlled Code(s): E11.9 - TYPE 2 DIABETES MELLITUS WITHOUT COMPLICATIONS Status: Chronic Qualifiers: Diabetes mellitus correction insulin use: with correction use Diabetes mellitus complication status: without complication Qualified Code(s): E11.9 - Type 2 diabetes mellitus without complications; Z79.4 - assisted (current) use of insulin (4) Dyslipidemia Code(s): E78.5 - HYPERLIPIDEMIA, UNSPECIFIED Status: Chronic (5) Hypertension Code(s): I10 - ESSENTIAL (PRIMARY) HYPERTENSION Status: Chronic Qualifiers: Hypertension type: essential hypertension Qualified Code(s): I10 - Essential (primary) hypertension (6) Hypothyroidism Code(s): E03.9 - HYPOTHYROIDISM, UNSPECIFIED Status: Chronic Qualifiers: Hypothyroidism type: acquired Qualified Code(s): E03.9 - Hypothyroidism, unspecified (7) Parkinson disease Code(s): G20 - PARKINSON'S DISEASE Status: Chronic - Plan mckeon catheter, continue antibiotics, DVT proph w/lovenox Hosp A/P (1) Acute respiratory failure with hypoxia Related to pneumonia On vent Mgmt. per gate guard Continue duonebs (2) Pneumonia Continue current abx therapy Further mgmt. per pulm. Continue nebs (3) Sepsis Rleated to pneumonia (4) Diabetes type 2, controlled On tube feeds now Continue SSI Monitor sugars and adjust regimen (5) Parkinson disease Home meds reconciled and sinemet resumed yesterday Tremors better controlled today (6) Hypothyroidism Home dose of synthroid resumed (7) Hypertension Continue coreg Monitor BP and adjust regimen (8) Dyslipidemia (9) Anxiety and depression 10. Diarrhea Continue fecal management system
[2019-07-21] MEDS ORDERED: Morphine 4 MG/ML VIAL SLOW IVP PRN (12:31)
--- NOTE | 2019-07-21 18:30 | PRG ---
DATE OF SERVICE: 07/21/2019 SUBJECTIVE: Elvie Oliver is on a tiny dose of Precedex. She is comfortable today. OBJECTIVE: VITAL SIGNS: Blood pressure has been stable. LUNGS: Have been clear with the exception only a few wheezes bilaterally. HEART: Regular rhythm. ABDOMEN: Soft. EXTREMITIES: Without asymmetry. Family wants to move forward with comfort care. LABORATORY DATA: White count 11.6, hemoglobin 8.1, platelets 295,000. Sodium 141, potassium 2.9, chloride 100, bicarb 29, BUN 24, creatinine 1.02. IMPRESSION: 1. Respiratory failure, clinically dramatically improved. 2. Underlying severe deconditioning and learning disability. 3. Anemia. 4. Pneumonia. Overall, she is probably as good as she will be. Recommended extubation and moving forward with comfort care. I answered all the family's questions. They are in agreement with this plan. If she wakes up enough to tolerate feedings, a pureed diet, like she had at the [facility] would be the next step. Job ID: [id number]
[2019-07-21] MEDS: Loratadine 10 MG TAB PO SCH (21:03)
[2019-07-22 05:45] LABS: ALT (SGPT) 27 U/L (8-55); AST (SGOT) 24 U/L (5-34); Albumin 3.3 g/dL (3.4-4.8); Alkaline Phosphatase 84 U/L (40-110); Anion Gap 17 mmol/L (10-20); BUN (Urea Nitrogen) 22 mg/dL (9.8-20.1); Bilirubin, Total 0.4 mg/dL (0.2-1.2); Calc. Creatinine Clearance 53 mL/min (70-130); Calcium 8.9 mg/dL (7.8-10.44); Carbon Dioxide 31 mmol/L (23-31); Chloride 98 mmol/L (98-107); Estimated GFR-MDRD 51; Globulin 3.1 g/dL (2.4-3.5); Glucose 122 mg/dL (83-110); Protein, Total 6.4 g/dL (6.0-8.3); Sodium 143 mmol/L (136-145)
[2019-07-22 05:47] LABS: Potassium 2.6 mmol/L (3.5-5.1)
[2019-07-22 05:50] LABS: Band 2 % (5-11); Eosinophils 1 % (0-10); Hemoglobin 7.8 g/dL (12.0-16.0); Hypochromia SLIGHT = 6-15 cells (100X) (0-5/hpf); Lymphocytes 9 % (21-51); MDiff Complete? YES; Mean Corpuscular Hemoglobin 23.9 pg (27.0-31.0); Mean Corpuscular Volume 74.8 fL (78.0-98.0); Mean Platelet Volume 7.4 fL (7.4-10.4); Microcytosis SLIGHT = 6-15 cells (100X) (0-5/hpf); Monocytes 4 % (0-10); Neutrophil 84 % (42-75); Platelet Count 329 thou/uL (130-400); Platelet Morphology Comment Appears Adequate; RBC Distribution Width 17.8 % (11.5-14.5); Red Blood Cell (RBC) Count 3.27 mill/uL (4.20-5.40); White Blood Cell (WBC) Count 14.1 thou/uL (4.8-10.8)
[2019-07-22] MEDS: Furosemide 40 MG/4 ML VIAL SLOW IVP SCH (06:16)
[2019-07-22] MEDS: Piperacillin/Tazobactam 3.375 GM in Sodium Chloride 0.9% 100 ML IVPB SCH ×2 (06:16→12:53)
[2019-07-22] MEDS: Levothyroxine Sodium 50 MCG TAB PO SCH (06:17)
[2019-07-22] MEDS ORDERED: Potassium Chloride 40 MEQ in Sodium Chloride 0.9% 250 ML 250 ML IVPB SCH (07:00)
[2019-07-22] MEDS: Famotidine/PF 20 mg/2ml Vial SLOW IVP SCH (08:10)
[2019-07-22] MEDS: Aspirin 81 mg Enteric Coated Tablet PO SCH (08:10)
[2019-07-22] MEDS: DULoxetine 60 MG CAP PO SCH (08:10)
[2019-07-22] MEDS: Clopidogrel Bisulfate 75 MG TAB PO SCH (08:10)
[2019-07-22] MEDS: Enoxaparin Sodium 40 MG/0.4 ML SYRINGE SC SCH (08:10)
[2019-07-22] MEDS: Allopurinol 100 MG TAB PO SCH (08:11)
[2019-07-22] MEDS: Carvedilol 6.25 MG TAB PO SCH ×2 (08:12→16:43)
[2019-07-22] MEDS: levETIRAcetam 750 MG, Admixture Fee 1 EACH in Sodium Chloride 0.9% 100 ML IVPB SCH ×2 (08:13→21:01)
[2019-07-22] MEDS ORDERED: Amlodipine 5 MG TAB PO SCH (09:00)
[2019-07-22] MEDS ORDERED: Carvedilol 6.25 MG TAB PO SCH (09:00)
[2019-07-22] MEDS: Trihexyphenidyl 2 MG TAB PO SCH ×3 (09:46→22:21)
[2019-07-22] MEDS: busPIRone HCl 10 MG TAB PO SCH ×2 (09:55→20:59)
[2019-07-22] MEDS: Potassium Chloride 20 MEQ TAB PO SCH ×2 (09:59→12:53)
--- NOTE | 2019-07-22 10:25 | PRG ---
DATE OF SERVICE: 07/22/2019 SUBJECTIVE: This patient was extubated yesterday. Today, she says she does not feel good. She wants a Diet Coke. OBJECTIVE: VITAL SIGNS: Temperature is 99.1, pulse 92, blood pressure 181/87, and O2 saturation 98%. HEENT: Unremarkable. NECK: No adenopathy or JVD. LUNGS: Clear anteriorly. CARDIAC: S1 and S2, regular. ABDOMEN: Soft. EXTREMITIES: Trace edema. LABORATORY DATA: White blood cell count 14, hematocrit 24.5, platelet count 329. Sodium 143, potassium 2.6, chloride 98, CO2 of 31, BUN 20, creatinine 1.0, and glucose 122. ASSESSMENT: 1. Status post acute respiratory failure, requiring mechanical ventilation. 2. Anasarca. 3. Chronically debilitated state. 4. Now DNR. PLAN: It appears she can be transferred out to the floor and continue treatment for her pneumonia with the antibiotics. Job ID: [id number]
[2019-07-22] MEDS: HumaLOG 300 UNITS/3 ML VIAL SC PRN ×2 (11:03→16:58)
--- NOTE | 2019-07-22 16:26 | PDOC.HOSPP ---
- Subjective Encounter Date: 07/22/19 Encounter Time: 16:20 non-verbal - Objective Vital Signs & Weight: Vital Signs (12 hours) Temp Pulse Pulse BP BP BP Pulse Ox 07/22/19 12:00 99.1 F 07/22/19 09:57 181/87 H 07/22/19 09:56 181/87 H 07/22/19 09:21 115 H 140 H 198/74 H 176/123 H 07/22/19 07:30 98 07/22/19 07:00 99.1 F Weight Admit Weight 160 lb 7.944 oz Weight 167 lb 8.821 oz Most Recent Monitor Data Heart Rate from ECG 73 NIBP 141/68 NIBP BP-Mean 92 Respiration from ECG 19 SpO2 96 I&O: 07/21/19 07/22/19 07/23/19 06:59 06:59 06:59 Intake Total 2734.8 1031.4 1100 Output Total 4022 5080 2750 [facility] -1287.2 -4048.6 -1650 Result Diagrams: 07/22/19 05:11 07/22/19 05:11 Additional Labs: Accuchecks 07/22/19 07/22/19 07/21/19 11:01 05:10 21:31 POC Glucose 193 H 155 H 129 H 07/21/19 16:26 POC Glucose 191 H Hospitalist ROS - Review of Systems ROS unobtainable: due to mental status - Medication Medications: Active Medications Generic Name Dose Route Start Last Admin Trade Name Giovanni PRN Reason Stop Dose Admin Allopurinol 100 mg 07/21/19 09:00 07/22/19 08:11 Zyloprim PO 100 mg DAILY CARL Administration Amlodipine Besylate 5 mg 07/22/19 09:00 07/22/19 09:57 Norvasc PO 5 mg DAILY CARL Administration Aspirin 81 mg 07/21/19 09:00 07/22/19 08:10 Ecotrin PO 81 mg DAILY CARL Administration Buspirone HCl 15 mg 07/20/19 21:00 07/22/19 09:55 Buspar PO 15 mg BID CARL Administration Clopidogrel Bisulfate 75 mg 07/21/19 09:00 07/22/19 08:10 Plavix PO 75 mg DAILY CARL Administration Duloxetine HCl 60 mg 07/21/19 09:00 07/22/19 08:10 Cymbalta PO 60 mg DAILY CARL Administration Enoxaparin Sodium 40 mg 07/19/19 09:00 07/22/19 08:10 Lovenox SC 40 mg 0900 CARL Administration Levetiracetam 750 mg/ 107.5 mls @ 215 mls/hr 07/18/19 21:00 07/22/19 08:13 Miscellaneous Medication 1 IVPB 107.5 mls each/ Sodium Chloride BID CARL Administration Insulin Human Lispro 0 units 07/18/19 15:40 07/22/19 11:03 Humalog SC 2 unit .MODERATE SLIDING SC PRN Administration Moderate Correctional Scale Levothyroxine Sodium 50 mcg 07/21/19 06:00 07/22/19 06:17 Synthroid PO 50 mcg 0600 CARL Administration Loratadine 10 mg 07/20/19 21:00 07/21/19 21:03 Claritin PO 10 mg HS CARL Administration Trihexyphenidyl HCl 2 mg 07/20/19 15:00 07/22/19 09:46 Artane PO 2 mg TID CARL Administration - Exam General Appearance: NAD, awake alert Eye: PERRL, anicteric sclera ENT: normocephalic atraumatic, no oropharyngeal lesions, moist mucosa Neck: supple, no thyromegaly, no lymphadenopathy Heart: RRR, normal peripheral pulses, murmur present Respiratory: CTAB, no wheezes, no rales, normal chest expansion Gastrointestinal: soft, non-tender, normal bowel sounds Gastrointestinal - other findings: Fecal management system with diarrhea; Valencia with clear urine Extremities: no cyanosis, no clubbing Hosp A/P (1) Pneumonia Code(s): J18.9 - PNEUMONIA, UNSPECIFIED ORGANISM Status: Acute Qualifiers: Pneumonia type: due to unspecified organism Laterality: bilateral Lung location: lower lobe of lung Qualified Code(s): J18.9 - Pneumonia, unspecified organism (2) Diarrhea Code(s): R19.7 - DIARRHEA, UNSPECIFIED Status: Acute Qualifiers: Diarrhea type: unspecified type Qualified Code(s): R19.7 - Diarrhea, unspecified (3) Acute respiratory failure with hypoxia Code(s): J96.01 - ACUTE RESPIRATORY FAILURE WITH HYPOXIA Status: Resolved (4) Diabetes type 2, controlled Code(s): E11.9 - TYPE 2 DIABETES MELLITUS WITHOUT COMPLICATIONS Status: Chronic Qualifiers: Diabetes mellitus [facility] insulin use: with ferry terminal agent use Diabetes mellitus complication status: without complication Qualified Code(s): E11.9 - Type 2 diabetes mellitus without complications; Z79.4 - truck terminal manager (current) use of insulin (5) Dyslipidemia Code(s): E78.5 - HYPERLIPIDEMIA, UNSPECIFIED Status: Chronic (6) Hypertension Code(s): I10 - ESSENTIAL (PRIMARY) HYPERTENSION Status: Chronic Qualifiers: Hypertension type: essential hypertension Qualified Code(s): I10 - Essential (primary) hypertension (7) Hypothyroidism Code(s): E03.9 - HYPOTHYROIDISM, UNSPECIFIED Status: Chronic Qualifiers: Hypothyroidism type: acquired Qualified Code(s): E03.9 - Hypothyroidism, unspecified (8) Parkinson disease Code(s): G20 - PARKINSON'S DISEASE Status: Chronic - Plan Hosp A/P # Pneumonia s/p 7 days of abx DC ABX # Diarrhea Suspect C.diff given that patient has profuse watery diarrhea, zosyn and levaquin use Has worsening WBC count Will check for C.diff, stool WBC & cultures Start vancomycin PO emperically Has hypokalemia due to diarrhea. Replace PO & IV (4) Diabetes type 2, controlled On diabetic diet Continue SSI Monitor sugars and adjust regimen (5) Parkinson disease Sinemet resumed Stable Tremors better controlled today (6) Hypothyroidism Continue home dose of synthroid (7) Hypertension Continue coreg DC amlodipine due to risk of hypotension due to diarrhea, will hold HTN meds Monitor BP and adjust regimen (8) Dyslipidemia Statin therapy (9) Anxiety and depression
--- NOTE | 2019-07-22 16:35 | RAD ---
EXAM: Single view of the abdomen HISTORY: Abdominal distention and diarrhea COMPARISON: None FINDINGS: Single view of the abdomen shows a nonspecific, nonobstructive bowel gas pattern. No suspi cious calcifications are seen. Surgical clips are seen in the upper abdomen. Degenerative changes are seen in the spine. IMPRESSION: Nonobstructive bowel gas pattern
[2019-07-22] MEDS: Vancomycin HCl 25 MG/ML Oral PO SCH (20:59)
[2019-07-22] MEDS: Loratadine 10 MG TAB PO SCH (21:19)
[2019-07-23] MEDS: Vancomycin HCl 25 MG/ML Oral PO SCH ×2 (00:24→05:12)
[2019-07-23] MEDS: Loratadine 10 MG TAB PO SCH ×2 (00:24→20:17)
[2019-07-23] MEDS: Levothyroxine Sodium 50 MCG TAB PO SCH (05:12)
[2019-07-23] MEDS: Acetaminophen 500 MG TAB PO PRN ×2 (05:12→17:17)
[2019-07-23] MEDS: HumaLOG 300 UNITS/3 ML VIAL SC PRN (06:20)
[2019-07-23] MEDS: levETIRAcetam 750 MG, Admixture Fee 1 EACH in Sodium Chloride 0.9% 100 ML IVPB SCH ×2 (08:13→20:17)
[2019-07-23 08:45] LABS: #Basophils 0.1 thou/uL (0.0-0.2); #Lymphocytes 1.8 thou/uL (1.20-3.40); #Neutrophils 12.3 thou/uL (1.40-6.50); %Basophils 0.3 % (0.0-1.0); %Eosinophils 0.2 % (0.0-10.0); %Lymphocytes 11.1 % (21.0-51.0); %Monocytes 12.5 % (0.0-10.0); %Neutrophils 75.8 % (42.0-75.0); Hemoglobin 7.7 g/dL (12.0-16.0); Mean Corpuscular HGB CONC 31.4 g/dL (32.0-36.0); Mean Corpuscular Hemoglobin 23.5 pg (27.0-31.0); Mean Corpuscular Volume 74.6 fL (78.0-98.0); Mean Platelet Volume 7.7 fL (7.4-10.4); Platelet Count 324 thou/uL (130-400); RBC Distribution Width 17.9 % (11.5-14.5); Red Blood Cell (RBC) Count 3.28 mill/uL (4.20-5.40); White Blood Cell (WBC) Count 16.3 thou/uL (4.8-10.8)
[2019-07-23 08:52] LABS: Hemoglobin 7.8 g/dL (12.0-16.0); Mean Corpuscular HGB CONC 31.9 g/dL (32.0-36.0); Mean Corpuscular Hemoglobin 23.8 pg (27.0-31.0); Mean Corpuscular Volume 74.7 fL (78.0-98.0); Mean Platelet Volume 7.9 fL (7.4-10.4); Platelet Count 331 thou/uL (130-400); RBC Distribution Width 18.1 % (11.5-14.5); Red Blood Cell (RBC) Count 3.26 mill/uL (4.20-5.40); White Blood Cell (WBC) Count 15.9 thou/uL (4.8-10.8)
[2019-07-23 08:59] LABS: Anion Gap 14 mmol/L (10-20); BUN (Urea Nitrogen) 18 mg/dL (9.8-20.1); Calc. Creatinine Clearance 51 mL/min (70-130); Calcium 8.4 mg/dL (7.8-10.44); Carbon Dioxide 31 mmol/L (23-31); Chloride 98 mmol/L (98-107); Estimated GFR-MDRD 48; Glucose 159 mg/dL (83-110); Sodium 140 mmol/L (136-145)
[2019-07-23 09:02] LABS: Potassium 2.9 mmol/L (3.5-5.1)
--- NOTE | 2019-07-23 09:14 | RAD ---
XR Chest 1 View History: Fever Comparison: Radiograph July 19, 2019 Findings: Small effusions. Heart size is enlarged. The patient has been extubated and the enteric tub e has been removed. Mild pulmonary venous congestion. The proximal humeri are demineralized with very large osteophyte fo rmation. Impression: Cardiomegaly with mild pulmonary venous congestion and small effusions.
[2019-07-23 09:25] LABS: Anisocytosis SLIGHT = 6-15 cells (100X) (0-5/hpf); Band 1 % (5-11); Elliptocytes SLIGHT = 2-5 cells (100X) (0-1/hpf); Hypersemented Neutrophil SLIGHT; Hypochromia MODERATE=16-30 cells (100X) (0-5/hpf); Lymphocytes 6 % (21-51); MDiff Complete? YES; Monocytes 9 % (0-10); Neutrophil 84 % (42-75); Ovalocytes SLIGHT = 2-5 cells (100X) (0-1/hpf); Platelet Morphology Comment Appears Adequate
[2019-07-23] MEDS: Allopurinol 100 MG TAB PO SCH (10:07)
[2019-07-23] MEDS: Aspirin 81 mg Enteric Coated Tablet PO SCH (10:07)
[2019-07-23] MEDS: Carvedilol 6.25 MG TAB PO SCH ×2 (10:07→16:44)
[2019-07-23] MEDS: Clopidogrel Bisulfate 75 MG TAB PO SCH (10:07)
[2019-07-23] MEDS: busPIRone HCl 10 MG TAB PO SCH ×2 (10:07→20:16)
[2019-07-23] MEDS: DULoxetine 60 MG CAP PO SCH (10:07)
[2019-07-23] MEDS: Enoxaparin Sodium 40 MG/0.4 ML SYRINGE SC SCH (10:08)
--- NOTE | 2019-07-23 10:44 | PDOC.HOSPP ---
- Subjective Encounter Date: 07/23/19 Encounter Time: 10:44 Subjective: Pt. unable to provide history or review of systems due to her intellectual disability. - Objective Vital Signs & Weight: Vital Signs (12 hours) Temp Pulse Resp BP BP Pulse Ox 07/23/19 10:07 122/67 07/23/19 08:00 95 07/23/19 07:54 100.6 F H 85 18 122/67 95 07/23/19 04:00 100.6 F H 88 18 129/68 93 L 07/23/19 00:00 98.4 F 84 16 128/55 L 93 L Weight Admit Weight 160 lb 7.944 oz Weight 170 lb Most Recent Monitor Data Heart Rate from ECG 71 NIBP 140/47 NIBP BP-Mean 78 Respiration from ECG 21 SpO2 94 I&O: 07/22/19 07/23/19 07/24/19 06:59 06:59 06:59 Intake Total 1031.4 2505 Output Total 5080 3240 Balance -4048.6 -735 Result Diagrams: 07/23/19 08:13 07/23/19 08:13 Additional Labs: Accuchecks 07/23/19 07/22/19 07/22/19 05:16 22:11 16:39 POC Glucose 181 H 174 H 199 H 07/22/19 11:01 POC Glucose 193 H Hospitalist ROS - Review of Systems ROS unobtainable: due to mental status - Medication Medications: Active Medications Generic Name Dose Route Start Last Admin Trade Name Freq PRN Reason Stop Dose Admin Acetaminophen 1,000 mg 07/23/19 03:32 07/23/19 05:12 Tylenol PO 1,000 mg Q6H PRN Administration Fever > 101 Allopurinol 100 mg 07/21/19 09:00 07/23/19 10:07 Zyloprim PO 100 mg DAILY CARL Administration Aspirin 81 mg 07/21/19 09:00 07/23/19 10:07 Ecotrin PO 81 mg DAILY CARL Administration Buspirone HCl 15 mg 07/20/19 21:00 07/23/19 10:07 Buspar PO 15 mg BID CARL Administration Carvedilol 12.5 mg 07/22/19 17:00 07/23/19 10:07 Coreg PO 12.5 mg BID- CARL Administration Clopidogrel Bisulfate 75 mg 07/21/19 09:00 07/23/19 10:07 Plavix PO 75 mg DAILY CARL Administration Duloxetine HCl 60 mg 07/21/19 09:00 07/23/19 10:07 Cymbalta PO 60 mg DAILY CARL Administration Enoxaparin Sodium 40 mg 07/19/19 09:00 07/23/19 10:08 Lovenox SC Not Given 0900 CARL Magnesium Sulfate 1 gm/ Sodium 102 mls @ 102 mls/hr 07/18/19 15:36 07/23/19 04:52 Chloride IV 102 mls PRN PRN Administration MAG LEVEL 1.4 - 2.0 Levetiracetam 750 mg/ 107.5 mls @ 215 mls/hr 07/18/19 21:00 07/23/19 08:13 Miscellaneous Medication 1 IVPB 107.5 mls each/ Sodium Chloride BID CARL Administration Insulin Human Lispro 0 units 07/18/19 15:40 07/23/19 06:20 Humalog SC 2 unit .MODERATE SLIDING SC PRN Administration Moderate Correctional Scale Levothyroxine Sodium 50 mcg 07/21/19 06:00 07/23/19 05:12 Synthroid PO 50 mcg 0600 CARL Administration Loratadine 10 mg 07/20/19 21:00 07/23/19 00:24 Claritin PO 10 mg HS CARL Administration Trihexyphenidyl HCl 2 mg 07/20/19 15:00 07/22/19 22:21 Artane PO 2 mg TID CARL Administration - Exam General Appearance: NAD, awake alert Eye: PERRL, anicteric sclera ENT: normocephalic atraumatic, no oropharyngeal lesions, moist mucosa Neck: supple, symmetric, no JVD, no thyromegaly, no lymphadenopathy, no carotid bruit Heart: RRR, no gallops, no rubs, normal peripheral pulses Respiratory: CTAB, no wheezes, no rales, no ronchi Gastrointestinal: soft, non-tender, non-distended, normal bowel sounds Hosp A/P (1) Pneumonia Code(s): J18.9 - PNEUMONIA, UNSPECIFIED ORGANISM Status: Acute Qualifiers: Pneumonia type: due to unspecified organism Laterality: bilateral Lung location: lower lobe of lung Qualified Code(s): J18.9 - Pneumonia, unspecified organism (2) Diarrhea Code(s): R19.7 - DIARRHEA, UNSPECIFIED Status: Acute Qualifiers: Diarrhea type: unspecified type Qualified Code(s): R19.7 - Diarrhea, unspecified (3) Acute respiratory failure with hypoxia Code(s): J96.01 - ACUTE RESPIRATORY FAILURE WITH HYPOXIA Status: Resolved (4) Diabetes type 2, controlled Code(s): E11.9 - TYPE 2 DIABETES MELLITUS WITHOUT COMPLICATIONS Status: Chronic Qualifiers: Diabetes mellitus wait staff insulin use: with long-term use Diabetes mellitus complication status: without complication Qualified Code(s): E11.9 - Type 2 diabetes mellitus without complications; Z79.4 - retirement (current) use of insulin (5) Dyslipidemia Code(s): E78.5 - HYPERLIPIDEMIA, UNSPECIFIED Status: Chronic (6) Hypertension Code(s): I10 - ESSENTIAL (PRIMARY) HYPERTENSION Status: Chronic Qualifiers: Hypertension type: essential hypertension Qualified Code(s): I10 - Essential (primary) hypertension (7) Hypothyroidism Code(s): E03.9 - HYPOTHYROIDISM, UNSPECIFIED Status: Chronic Qualifiers: Hypothyroidism type: acquired Qualified Code(s): E03.9 - Hypothyroidism, unspecified (8) Parkinson disease Code(s): G20 - PARKINSON'S DISEASE Status: Chronic - Plan Hosp A/P # Pneumonia s/p 7 days of abx # Diarrhea C.diff testing negative WBCs +ve in stool Likely infectious in etiology Follow cultures Negative for E.coli and campylobacter # Diabetes type 2, controlled On diabetic diet Continue SSI Monitor sugars and adjust regimen # Parkinson disease Sinemet resumed Entacapone susbtitued for home med Stable Tremors better controlled # Hypothyroidism Continue home dose of synthroid # Hypertension Continue coreg Monitor BP and adjust regimen # Dyslipidemia Statin therapy # Anxiety and depression
[2019-07-23] MEDS: Floranex Packet PO SCH (11:17)
[2019-07-23] MEDS: Trihexyphenidyl 2 MG TAB PO SCH ×3 (11:44→20:16)
[2019-07-23] MEDS: Potassium Chloride 20 MEQ TAB PO SCH ×3 (11:45→20:17)
[2019-07-23] MEDS: Magnesium Oxide 400 MG TAB PO SCH ×2 (14:35→20:16)
[2019-07-23] MEDS ORDERED: Entacapone 200 mg Tablet PO SCH (15:00)
[2019-07-23] MEDS: Entacapone 200 mg Tablet PO SCH ×2 (16:44→20:16)
[2019-07-23] MEDS: Carbidopa/Levodopa 10-100 mg Tablet PO SCH ×2 (17:17→20:16)
[2019-07-24] MEDS: Levothyroxine Sodium 50 MCG TAB PO SCH (04:44)
[2019-07-24 07:31] LABS: ALT (SGPT) 16 U/L (8-55); AST (SGOT) 17 U/L (5-34); Albumin 3.3 g/dL (3.4-4.8); Alkaline Phosphatase 74 U/L (40-110); Anion Gap 14 mmol/L (10-20); BUN (Urea Nitrogen) 21 mg/dL (9.8-20.1); Bilirubin, Total 0.4 mg/dL (0.2-1.2); Calc. Creatinine Clearance 54 mL/min (70-130); Calcium 8.8 mg/dL (7.8-10.44); Carbon Dioxide 30 mmol/L (23-31); Chloride 102 mmol/L (98-107); Estimated GFR-MDRD 52; Globulin 3.5 g/dL (2.4-3.5); Glucose 138 mg/dL (83-110); Potassium 4.2 mmol/L (3.5-5.1); Protein, Total 6.8 g/dL (6.0-8.3); Sodium 142 mmol/L (136-145)
[2019-07-24 08:21] LABS: Hemoglobin 7.8 g/dL (12.0-16.0); Mean Corpuscular HGB CONC 30.4 g/dL (32.0-36.0); Mean Corpuscular Hemoglobin 23.3 pg (27.0-31.0); Mean Corpuscular Volume 76.6 fL (78.0-98.0); Mean Platelet Volume 7.5 fL (7.4-10.4); Platelet Count 379 thou/uL (130-400); RBC Distribution Width 17.9 % (11.5-14.5); Red Blood Cell (RBC) Count 3.33 mill/uL (4.20-5.40); White Blood Cell (WBC) Count 14.7 thou/uL (4.8-10.8)
[2019-07-24 09:08] LABS: Hypochromia MODERATE=16-30 cells (100X) (0-5/hpf); Lymphocytes 9 % (21-51); MDiff Complete? YES; Monocytes 10 % (0-10); Neutrophil 81 % (42-75); Platelet Morphology Comment Appears Adequate
[2019-07-24] MEDS: Carvedilol 6.25 MG TAB PO SCH ×2 (09:09→15:33)
[2019-07-24] MEDS: Magnesium Oxide 400 MG TAB PO SCH ×3 (09:10→20:40)
[2019-07-24] MEDS: Clopidogrel Bisulfate 75 MG TAB PO SCH (09:10)
[2019-07-24] MEDS: Aspirin 81 mg Enteric Coated Tablet PO SCH (09:10)
[2019-07-24] MEDS: Allopurinol 100 MG TAB PO SCH (09:10)
[2019-07-24] MEDS: busPIRone HCl 10 MG TAB PO SCH ×2 (09:10→20:40)
[2019-07-24] MEDS: DULoxetine 60 MG CAP PO SCH (09:10)
[2019-07-24] MEDS: Carbidopa/Levodopa 10-100 mg Tablet PO SCH ×3 (09:11→20:41)
[2019-07-24] MEDS: Floranex Packet PO SCH (09:11)
[2019-07-24] MEDS: Entacapone 200 mg Tablet PO SCH ×3 (09:12→20:41)
[2019-07-24] MEDS: Trihexyphenidyl 2 MG TAB PO SCH ×3 (09:12→20:42)
[2019-07-24] MEDS: Enoxaparin Sodium 40 MG/0.4 ML SYRINGE SC SCH (09:35)
[2019-07-24] MEDS: levETIRAcetam 750 MG, Admixture Fee 1 EACH in Sodium Chloride 0.9% 100 ML IVPB SCH ×2 (10:20→20:29)
[2019-07-24] MEDS: HumaLOG 300 UNITS/3 ML VIAL SC PRN ×2 (11:45→22:43)
--- NOTE | 2019-07-24 15:14 | PDOC.HOSPP ---
- Subjective Encounter Date: 07/24/19 Encounter Time: 12:15 Subjective: Patient is eager to be discharged. She has persistent diarrhea but no N/V or abdominal pain. No fever, chills. - Objective Vital Signs & Weight: Vital Signs (12 hours) Temp Pulse Resp BP BP Pulse Ox 07/24/19 09:09 163/76 H 07/24/19 07:55 97 07/24/19 07:46 98.9 F 67 20 163/76 H 97 Weight Admit Weight 160 lb 7.944 oz Weight 170 lb Most Recent Monitor Data Heart Rate from ECG 71 NIBP 140/47 NIBP BP-Mean 78 Respiration from ECG 21 SpO2 94 I&O: 07/23/19 07/24/19 07/25/19 06:59 06:59 06:59 Intake Total 2505 1100 Output Total 3240 850 Balance -735 250 Result Diagrams: 07/24/19 08:04 07/24/19 06:39 Additional Labs: Accuchecks 07/24/19 07/24/19 07/23/19 11:03 04:43 20:30 POC Glucose 213 H 140 H 170 H 07/23/19 16:14 POC Glucose 164 H Hospitalist ROS - Medication Medications: Active Medications Generic Name Dose Route Start Last Admin Trade Name Freq PRN Reason Stop Dose Admin Acetaminophen 1,000 mg 07/23/19 03:32 07/23/19 17:17 Tylenol PO 1,000 mg Q6H PRN Administration Fever > 101 Acidophilus 1 gm 07/23/19 09:00 07/24/19 09:11 Floranex PO 1 gm DAILY CARL Administration Allopurinol 100 mg 07/21/19 09:00 07/24/19 09:10 Zyloprim PO 100 mg DAILY CARL Administration Aspirin 81 mg 07/21/19 09:00 07/24/19 09:10 Ecotrin PO 81 mg DAILY CARL Administration Buspirone HCl 15 mg 07/20/19 21:00 07/24/19 09:10 Buspar PO 15 mg BID CARL Administration Carbidopa/Levodopa 1 tab 07/23/19 15:00 07/24/19 09:11 Sinemet 10/100 PO 1 tab TID CARL Administration Carvedilol 12.5 mg 07/22/19 17:00 07/24/19 09:09 Coreg PO 12.5 mg BID-WM CARL Administration Clopidogrel Bisulfate 75 mg 07/21/19 09:00 07/24/19 09:10 Plavix PO 75 mg DAILY CARL Administration Duloxetine HCl 60 mg 07/21/19 09:00 07/24/19 09:10 Cymbalta PO 60 mg DAILY CARL Administration Enoxaparin Sodium 40 mg 07/19/19 09:00 07/24/19 09:35 Lovenox SC Not Given 09 [facility] Entacapone 200 mg 07/23/19 15:00 07/24/19 09:12 Comtan PO 200 mg TID CARL Administration Magnesium Sulfate 1 gm/ Sodium 102 mls @ 102 mls/hr 07/18/19 15:36 07/23/19 04:52 Chloride IV 102 mls PRN PRN Administration MAG LEVEL 1.4 - 2.0 Levetiracetam 750 mg/ 107.5 mls @ 215 mls/hr 07/18/19 21:00 07/24/19 10:20 Miscellaneous Medication 1 IVPB 107.5 mls each/ Sodium Chloride BID CARL Administration Insulin Human Lispro 0 units 07/18/19 15:40 07/24/19 11:45 Humalog SC 4 unit .MODERATE SLIDING SC PRN Administration Moderate Correctional Scale Levothyroxine Sodium 50 mcg 07/21/19 06:00 07/24/19 04:44 Synthroid PO 50 mcg 0600 [facility] Administration Loratadine 10 mg 07/20/19 21:00 07/23/19 20:17 Claritin PO 10 mg HS CARL Administration Magnesium Oxide 800 mg 07/23/19 15:00 07/24/19 09:10 Magnesium Oxide PO 07/25/19 15:01 800 mg TID CARL Administration Trihexyphenidyl HCl 2 mg 07/20/19 15:00 07/24/19 09:12 Artane PO 2 mg TID CARL Administration - Exam General Appearance: NAD, awake alert Eye: PERRL, anicteric sclera ENT: normocephalic atraumatic, no oropharyngeal lesions, moist mucosa Neck: supple, symmetric, no thyromegaly, no lymphadenopathy Heart: RRR, no murmur, no gallops, normal peripheral pulses Respiratory: CTAB, no wheezes, no ronchi, normal chest expansion Gastrointestinal: soft, non-tender, non-distended, normal bowel sounds Gastrointestinal - other findings: [place]+; Flexiseal with liquid stool that's dark Hosp A/P (1) Pneumonia Code(s): J18.9 - PNEUMONIA, UNSPECIFIED ORGANISM Status: Acute Qualifiers: Pneumonia type: due to unspecified organism Laterality: bilateral Lung location: lower lobe of lung Qualified Code(s): J18.9 - Pneumonia, unspecified organism (2) Diarrhea Code(s): R19.7 - DIARRHEA, UNSPECIFIED Status: Acute Qualifiers: Diarrhea type: unspecified type Qualified Code(s): R19.7 - Diarrhea, unspecified (3) Acute respiratory failure with hypoxia Code(s): J96.01 - ACUTE RESPIRATORY FAILURE WITH HYPOXIA Status: Resolved (4) Diabetes type 2, controlled Code(s): E11.9 - TYPE 2 DIABETES MELLITUS WITHOUT COMPLICATIONS Status: Chronic Qualifiers: Diabetes mellitus terminal superintendent insulin use: with custodial use Diabetes mellitus complication status: without complication Qualified Code(s): E11.9 - Type 2 diabetes mellitus without complications; Z79.4 - oil heaterman (current) use of insulin (5) Dyslipidemia Code(s): E78.5 - HYPERLIPIDEMIA, UNSPECIFIED Status: Chronic (6) Hypertension Code(s): I10 - ESSENTIAL (PRIMARY) HYPERTENSION Status: Chronic Qualifiers: Hypertension type: essential hypertension Qualified Code(s): I10 - Essential (primary) hypertension (7) Hypothyroidism Code(s): E03.9 - HYPOTHYROIDISM, UNSPECIFIED Status: Chronic Qualifiers: Hypothyroidism type: acquired Qualified Code(s): E03.9 - Hypothyroidism, unspecified (8) Parkinson disease Code(s): G20 - PARKINSON'S DISEASE Status: Chronic - Plan Hosp A/P # Pneumonia s/p 7 days of abx # Diarrhea C.diff testing negative WBCs +ve in stool Stool culture with yeast GI consulted. Case DW GI. Will obtain Stool for Ova & Parasites as instructed by GI Likely infectious in etiology Negative for E.coli and campylobacter # Diabetes type 2, controlled On diabetic diet Continue SSI Monitor sugars and adjust regimen # Parkinson disease Sinemet resumed Entacapone susbtituted for home med Stable Tremors better controlled # Hypothyroidism Continue home dose of synthroid # Hypertension Continue coreg Monitor BP and adjust regimen # Dyslipidemia Statin therapy # Anxiety and depression
[2019-07-24] MEDS: Loratadine 10 MG TAB PO SCH (20:40)
[2019-07-25 06:20] LABS: Eosinophils 1 % (0-10); Hemoglobin 7.7 g/dL (12.0-16.0); Lymphocytes 21 % (21-51); MDiff Complete? YES; Mean Corpuscular HGB CONC 31.5 g/dL (32.0-36.0); Mean Corpuscular Hemoglobin 23.9 pg (27.0-31.0); Mean Corpuscular Volume 75.8 fL (78.0-98.0); Monocytes 3 % (0-10); Neutrophil 74 % (42-75); Platelet Count 426 thou/uL (130-400); Platelet Morphology Comment Appears Increased; Red Blood Cell (RBC) Count 3.22 mill/uL (4.20-5.40); White Blood Cell (WBC) Count 16.5 thou/uL (4.8-10.8)
[2019-07-25 06:36] LABS: ALT (SGPT) 13 U/L (8-55); AST (SGOT) 18 U/L (5-34); Albumin 3.1 g/dL (3.4-4.8); Alkaline Phosphatase 77 U/L (40-110); Anion Gap 15 mmol/L (10-20); BUN (Urea Nitrogen) 21 mg/dL (9.8-20.1); Bilirubin, Total 0.4 mg/dL (0.2-1.2); Calc. Creatinine Clearance 57 mL/min (70-130); Calcium 8.6 mg/dL (7.8-10.44); Carbon Dioxide 27 mmol/L (23-31); Chloride 100 mmol/L (98-107); Estimated GFR-MDRD 55; Globulin 3.4 g/dL (2.4-3.5); Glucose 131 mg/dL (83-110); Potassium 3.8 mmol/L (3.5-5.1); Protein, Total 6.5 g/dL (6.0-8.3); Sodium 138 mmol/L (136-145)
[2019-07-25] MEDS: Levothyroxine Sodium 50 MCG TAB PO SCH (07:14)
[2019-07-25] MEDS: Carbidopa/Levodopa 10-100 mg Tablet PO SCH ×3 (08:26→20:21)
[2019-07-25] MEDS: DULoxetine 60 MG CAP PO SCH (08:27)
[2019-07-25] MEDS: Entacapone 200 mg Tablet PO SCH ×3 (08:27→20:22)
[2019-07-25] MEDS: Floranex Packet PO SCH (08:27)
[2019-07-25] MEDS: Trihexyphenidyl 2 MG TAB PO SCH ×3 (08:27→20:22)
[2019-07-25] MEDS: busPIRone HCl 10 MG TAB PO SCH ×2 (08:27→20:21)
[2019-07-25] MEDS: Carvedilol 6.25 MG TAB PO SCH ×2 (08:27→15:45)
[2019-07-25] MEDS: Clopidogrel Bisulfate 75 MG TAB PO SCH (08:27)
[2019-07-25] MEDS: Allopurinol 100 MG TAB PO SCH (08:27)
[2019-07-25] MEDS: Magnesium Oxide 400 MG TAB PO SCH (08:27)
[2019-07-25] MEDS: Aspirin 81 mg Enteric Coated Tablet PO SCH (08:28)
[2019-07-25] MEDS: Enoxaparin Sodium 40 MG/0.4 ML SYRINGE SC SCH (08:28)
[2019-07-25] MEDS: levETIRAcetam 750 MG, Admixture Fee 1 EACH in Sodium Chloride 0.9% 100 ML IVPB SCH (08:28)
--- NOTE | 2019-07-25 11:04 | PDOC.HOSPP ---
- Subjective Encounter Date: 07/25/19 Encounter Time: 11:03 Subjective: alert calm, ants to go home - Objective Vital Signs & Weight: Vital Signs (12 hours) Temp Pulse Resp BP BP Pulse Ox 07/25/19 08:27 160/84 H 07/25/19 07:28 99.4 F 77 18 160/84 H 94 L Weight Admit Weight 160 lb 7.944 oz Weight 170 lb 11.2 oz Most Recent Monitor Data Heart Rate from ECG 71 NIBP 140/47 NIBP BP-Mean 78 Respiration from ECG 21 SpO2 94 I&O: 07/24/19 07/25/19 07/26/19 06:59 06:59 06:59 Intake Total 1100 200 Output Total 850 450 Balance 250 -250 Result Diagrams: 07/25/19 05:31 07/25/19 05:34 Additional Labs: Accuchecks 07/25/19 07/24/19 07/24/19 05:11 20:51 16:37 POC Glucose 141 H 205 H 177 H 07/24/19 11:03 POC Glucose 213 H Hospitalist ROS - Medication Medications: Active Medications Generic Name Dose Route Start Last Admin Trade Name Freq PRN Reason Stop Dose Admin Acetaminophen 1,000 mg 07/23/19 03:32 07/23/19 17:17 Tylenol PO 1,000 mg Q6H PRN Administration Fever > 101 Acidophilus 1 gm 07/23/19 09:00 07/25/19 08:27 Floranex PO 1 gm DAILY CARL Administration Allopurinol 100 mg 07/21/19 09:00 07/25/19 08:27 Zyloprim PO 100 mg DAILY CARL Administration Aspirin 81 mg 07/21/19 09:00 07/25/19 08:28 Ecotrin PO 81 mg DAILY CARL Administration Buspirone HCl 15 mg 07/20/19 21:00 07/25/19 08:27 Buspar PO 15 mg BID CARL Administration Carbidopa/Levodopa 1 tab 07/23/19 15:00 07/25/19 08:26 Sinemet 10/100 PO 1 tab TID CARL Administration Carvedilol 12.5 mg 07/22/19 17:00 07/25/19 08:27 Coreg PO 12.5 mg BID-WM CARL Administration Clopidogrel Bisulfate 75 mg 07/21/19 09:00 07/25/19 08:27 Plavix PO 75 mg DAILY CARL Administration Duloxetine HCl 60 mg 07/21/19 09:00 07/25/19 08:27 Cymbalta PO 60 mg DAILY CARL Administration Enoxaparin Sodium 40 mg 07/19/19 09:00 07/25/19 08:28 Lovenox SC Not Given 0900 CARL Entacapone 200 mg 07/23/19 15:00 07/25/19 08:27 Comtan PO 200 mg TID CARL Administration Levetiracetam 750 mg/ 107.5 mls @ 215 mls/hr 07/18/19 21:00 07/25/19 08:28 Miscellaneous Medication 1 IVPB 107.5 mls each/ Sodium Chloride BID CARL Administration Insulin Human Lispro 0 units 07/18/19 15:40 07/24/19 22:43 Humalog SC 4 unit .MODERATE SLIDING SC PRN Administration Moderate Correctional Scale Levothyroxine Sodium 50 mcg 07/21/19 06:00 07/25/19 07:14 Synthroid PO 50 mcg 0600 CARL Administration Loratadine 10 mg 07/20/19 21:00 07/24/19 20:40 Claritin PO 10 mg HS CARL Administration Trihexyphenidyl HCl 2 mg 07/20/19 15:00 07/25/19 08:27 Artane PO 2 mg TID CARL Administration - Exam Neck: no JVD Heart: RRR, no murmur Respiratory: CTAB Gastrointestinal: soft, normal bowel sounds Extremities: 1+ LE edema Hosp A/P (1) Pneumonia Code(s): J18.9 - PNEUMONIA, UNSPECIFIED ORGANISM Status: Acute Qualifiers: Pneumonia type: due to unspecified organism Laterality: bilateral Lung location: lower lobe of lung Qualified Code(s): J18.9 - Pneumonia, unspecified organism (2) Diabetes type 2, controlled Code(s): E11.9 - TYPE 2 DIABETES MELLITUS WITHOUT COMPLICATIONS Status: Chronic Qualifiers: Diabetes mellitus residential insulin use: with residential use Diabetes mellitus complication status: without complication Qualified Code(s): E11.9 - Type 2 diabetes mellitus without complications; Z79.4 - buttermaker (current) use of insulin (3) Dyslipidemia Code(s): E78.5 - HYPERLIPIDEMIA, UNSPECIFIED Status: Chronic (4) Hypothyroidism Code(s): E03.9 - HYPOTHYROIDISM, UNSPECIFIED Status: Chronic Qualifiers: Hypothyroidism type: acquired Qualified Code(s): E03.9 - Hypothyroidism, unspecified (5) Parkinson disease Code(s): G20 - PARKINSON'S DISEASE Status: Chronic (6) Anemia Code(s): D64.9 - ANEMIA, UNSPECIFIED Status: Acute Qualifiers: Anemia type: unspecified type Qualified Code(s): D64.9 - Anemia, unspecified - Plan anemia notaddressed- Fe, TIBC, folate, B 12 cont regular home meds
[2019-07-25 12:26] LABS: Iron 20 ug/dL (50-170); Iron Binding Capacity, Total 283 mcg/dL (265-497)
[2019-07-25] MEDS: Loratadine 10 MG TAB PO SCH (20:22)
[2019-07-25] MEDS: levETIRAcetam 500 mg/5 ml Oral Solution PO SCH (20:52)
[2019-07-25] MEDS ORDERED: levETIRAcetam 500 MG TAB PO SCH (21:00)
[2019-07-26] MEDS: Levothyroxine Sodium 50 MCG TAB PO SCH (05:48)
[2019-07-26 06:33] LABS: Anion Gap 13 mmol/L (10-20); BUN (Urea Nitrogen) 17 mg/dL (9.8-20.1); Calc. Creatinine Clearance 67 mL/min (70-130); Calcium 8.4 mg/dL (7.8-10.44); Carbon Dioxide 26 mmol/L (23-31); Chloride 102 mmol/L (98-107); Estimated GFR-MDRD 66; Glucose 138 mg/dL (83-110); Potassium 3.8 mmol/L (3.5-5.1); Sodium 137 mmol/L (136-145)
[2019-07-26 06:38] LABS: Hemoglobin 7.6 g/dL (12.0-16.0); Hypochromia SLIGHT = 6-15 cells (100X) (0-5/hpf); Lymphocytes 10 % (21-51); MDiff Complete? YES; Mean Corpuscular HGB CONC 27.6 g/dL (32.0-36.0); Mean Corpuscular Hemoglobin 21.2 pg (27.0-31.0); Mean Corpuscular Volume 76.9 fL (78.0-98.0); Mean Platelet Volume 7.1 fL (7.4-10.4); Monocytes 4 % (0-10); Neutrophil 86 % (42-75); Platelet Count 556 thou/uL (130-400); Platelet Morphology Comment Appears Increased; RBC Distribution Width 18.1 % (11.5-14.5); Red Blood Cell (RBC) Count 3.58 mill/uL (4.20-5.40); White Blood Cell (WBC) Count 12.6 thou/uL (4.8-10.8)
[2019-07-26] MEDS: Carvedilol 6.25 MG TAB PO SCH ×2 (08:39→16:32)
[2019-07-26] MEDS: Aspirin 81 mg Enteric Coated Tablet PO SCH (08:39)
[2019-07-26] MEDS: Allopurinol 100 MG TAB PO SCH (08:39)
[2019-07-26] MEDS: DULoxetine 60 MG CAP PO SCH (08:39)
[2019-07-26] MEDS: busPIRone HCl 10 MG TAB PO SCH ×2 (08:40→20:40)
[2019-07-26] MEDS: Carbidopa/Levodopa 10-100 mg Tablet PO SCH ×3 (08:40→20:40)
[2019-07-26] MEDS: Clopidogrel Bisulfate 75 MG TAB PO SCH (08:40)
[2019-07-26] MEDS: Floranex Packet PO SCH (08:40)
[2019-07-26] MEDS: Enoxaparin Sodium 40 MG/0.4 ML SYRINGE SC SCH (08:41)
[2019-07-26] MEDS: Trihexyphenidyl 2 MG TAB PO SCH ×3 (08:41→20:41)
[2019-07-26] MEDS: Entacapone 200 mg Tablet PO SCH ×3 (08:41→20:40)
[2019-07-26] MEDS: levETIRAcetam 500 mg/5 ml Oral Solution PO SCH ×2 (08:42→20:42)
--- NOTE | 2019-07-26 11:01 | PDOC.HOSPP ---
- Subjective Encounter Date: 07/26/19 Encounter Time: 10:53 Subjective: alert, has mckeon and rectal tube! - Objective Vital Signs & Weight: Vital Signs (12 hours) Temp Pulse Resp BP BP Pulse Ox 07/26/19 08:39 142/79 H 07/26/19 08:00 95 07/26/19 07:13 98.7 F 71 22 H 142/79 H 95 07/26/19 04:00 98.0 F 70 20 165/83 H 94 L 07/26/19 00:00 98.5 F 71 20 139/77 95 Weight Admit Weight 160 lb 7.944 oz Weight 165 lb 8 oz Most Recent Monitor Data Heart Rate from ECG 71 NIBP 140/47 NIBP BP-Mean 78 Respiration from ECG 21 SpO2 94 I&O: 07/25/19 07/26/19 07/27/19 06:59 06:59 06:59 Intake Total 200 100 Output Total 450 900 Balance -250 -800 Result Diagrams: 07/26/19 05:38 07/26/19 05:38 Additional Labs: Accuchecks 07/26/19 07/25/19 07/25/19 04:44 19:38 15:48 POC Glucose 152 H 197 H 163 H 07/25/19 11:36 POC Glucose 166 H Hospitalist ROS - Medication Medications: Active Medications Generic Name Dose Route Start Last Admin Trade Name Freq PRN Reason Stop Dose Admin Acetaminophen 1,000 mg 07/23/19 03:32 07/23/19 17:17 Tylenol PO 1,000 mg Q6H PRN Administration Fever > 101 Acidophilus 1 gm 07/23/19 09:00 07/26/19 08:40 Floranex PO 1 gm DAILY CARL Administration Allopurinol 100 mg 07/21/19 09:00 07/26/19 08:39 Zyloprim PO 100 mg DAILY CARL Administration Aspirin 81 mg 07/21/19 09:00 07/26/19 08:39 Ecotrin PO 81 mg DAILY CARL Administration Buspirone HCl 15 mg 07/20/19 21:00 07/26/19 08:40 Buspar PO 15 mg BID CARL Administration Carbidopa/Levodopa 1 tab 07/23/19 15:00 07/26/19 08:40 Sinemet 10/100 PO 1 tab TID CARL Administration Carvedilol 12.5 mg 07/22/19 17:00 07/26/19 08:39 Coreg PO 12.5 mg BID-WM CARL Administration Clopidogrel Bisulfate 75 mg 07/21/19 09:00 07/26/19 08:40 Plavix PO 75 mg DAILY CARL Administration Duloxetine HCl 60 mg 07/21/19 09:00 07/26/19 08:39 Cymbalta PO 60 mg DAILY CARL Administration Enoxaparin Sodium 40 mg 07/19/19 09:00 07/26/19 08:41 Lovenox SC Not Given 0900 [facility] Entacapone 200 mg 07/23/19 15:00 07/26/19 08:41 Comtan PO 200 mg TID CARL Administration Insulin Human Lispro 0 units 07/18/19 15:40 07/24/19 22:43 Humalog SC 4 unit .MODERATE SLIDING SC PRN Administration Moderate Correctional Scale Levetiracetam 750 mg 07/25/19 21:00 07/26/19 08:42 Keppra Oral Solution PO 750 mg BID [facility] Administration Levothyroxine Sodium 50 mcg 07/21/19 06:00 07/26/19 05:48 Synthroid PO 50 mcg 0600 [facility] Administration Loratadine 10 mg 07/20/19 21:00 07/25/19 20:22 Claritin PO 10 mg HS CARL Administration Trihexyphenidyl HCl 2 mg 07/20/19 15:00 07/26/19 08:41 Artane PO 2 mg TID CARL Administration - Exam General Appearance: awake alert Neck: no JVD Heart: RRR, no murmur Respiratory: CTAB, no wheezes Gastrointestinal: soft, normal bowel sounds Extremities: 1+ LE edema Hosp A/P (1) Pneumonia Code(s): J18.9 - PNEUMONIA, UNSPECIFIED ORGANISM Status: Acute Qualifiers: Pneumonia type: due to unspecified organism Laterality: bilateral Lung location: lower lobe of lung Qualified Code(s): J18.9 - Pneumonia, unspecified organism (2) Diabetes type 2, controlled Code(s): E11.9 - TYPE 2 DIABETES MELLITUS WITHOUT COMPLICATIONS Status: Chronic Qualifiers: Diabetes mellitus mining helper insulin use: with snf use Diabetes mellitus complication status: without complication Qualified Code(s): E11.9 - Type 2 diabetes mellitus without complications; Z79.4 - longterm (current) use of insulin (3) Dyslipidemia Code(s): E78.5 - HYPERLIPIDEMIA, UNSPECIFIED Status: Chronic (4) Hypothyroidism Code(s): E03.9 - HYPOTHYROIDISM, UNSPECIFIED Status: Chronic Qualifiers: Hypothyroidism type: acquired Qualified Code(s): E03.9 - Hypothyroidism, unspecified (5) Parkinson disease Code(s): G20 - PARKINSON'S DISEASE Status: Chronic (6) Anemia Code(s): D64.9 - ANEMIA, UNSPECIFIED Status: Acute Qualifiers: Anemia type: unspecified type Qualified Code(s): D64.9 - Anemia, unspecified (7) Diarrhea Code(s): R19.7 - DIARRHEA, UNSPECIFIED Status: Acute Qualifiers: Diarrhea type: unspecified type Qualified Code(s): R19.7 - Diarrhea, unspecified - Plan serum iron low, fobt, load with iv iron DC mckeon, rectal tube discuused with [employer] [place] [facility] to [employer] [facility] [employer]
[2019-07-26] MEDS ORDERED: Iron, Sodium Ferric Gluconate 250 MG in Sodium Chloride 0.9% 100 ML IVPB SCH (11:15)
[2019-07-26 13:18] VITALS: BMI 30.2
--- NOTE | 2019-07-26 17:56 | PRG ---
DATE OF SERVICE: 07/26/2019 SUBJECTIVE: This is a 79-year-old with Down syndrome, respiratory failure, diabetes, Parkinson disease, hypothyroidism. I saw the patient today for severe diarrhea. She had a rectal tube and she was putting a large amount of liquid stool. output is getting less and less. With the colostomy bag, she has probably about 100 mL of liquid stool yesterday. She is tolerating diet very well. No abdominal pain. No nausea or vomiting. OBJECTIVE: GENERAL: Appears comfortable, less communicative, uttering few words. VITAL SIGNS: Stable. CARDIOVASCULAR SYSTEM: Diarrhea. This is resolving as her stool output is getting less and less. May consider Metamucil or Questran to from the stool. Job ID: [id number]
[2019-07-26] MEDS: Acetaminophen 500 MG TAB PO PRN (20:41)
[2019-07-26] MEDS: Loratadine 10 MG TAB PO SCH (20:41)
[2019-07-27] MEDS: Acetaminophen 500 MG TAB PO PRN ×2 (03:47→20:14)
[2019-07-27] MEDS: Levothyroxine Sodium 50 MCG TAB PO SCH (06:33)
[2019-07-27 06:47] LABS: Anion Gap 12 mmol/L (10-20); BUN (Urea Nitrogen) 12 mg/dL (9.8-20.1); Calc. Creatinine Clearance 68 mL/min (70-130); Calcium 8.8 mg/dL (7.8-10.44); Carbon Dioxide 26 mmol/L (23-31); Chloride 102 mmol/L (98-107); Estimated GFR-MDRD 70; Glucose 129 mg/dL (83-110); Potassium 3.8 mmol/L (3.5-5.1); Sodium 136 mmol/L (136-145)
[2019-07-27 06:48] LABS: Eosinophils 6 % (0-10); Hemoglobin 7.7 g/dL (12.0-16.0); Lymphocytes 17 % (21-51); MDiff Complete? YES; Mean Corpuscular HGB CONC 30.7 g/dL (32.0-36.0); Mean Corpuscular Hemoglobin 23.5 pg (27.0-31.0); Mean Corpuscular Volume 76.6 fL (78.0-98.0); Mean Platelet Volume 6.7 fL (7.4-10.4); Monocytes 9 % (0-10); Neutrophil 68 % (42-75); Platelet Count 595 thou/uL (130-400); Platelet Morphology Comment Appears Increased; Red Blood Cell (RBC) Count 3.26 mill/uL (4.20-5.40); White Blood Cell (WBC) Count 10.7 thou/uL (4.8-10.8)
[2019-07-27] MEDS: DULoxetine 60 MG CAP PO SCH (09:05)
[2019-07-27] MEDS: Clopidogrel Bisulfate 75 MG TAB PO SCH (09:05)
[2019-07-27] MEDS: levETIRAcetam 500 mg/5 ml Oral Solution PO SCH ×2 (09:05→20:18)
[2019-07-27] MEDS: Carbidopa/Levodopa 10-100 mg Tablet PO SCH ×3 (09:05→20:16)
[2019-07-27] MEDS: Carvedilol 6.25 MG TAB PO SCH ×2 (09:05→16:36)
[2019-07-27] MEDS: Entacapone 200 mg Tablet PO SCH ×3 (09:05→20:17)
[2019-07-27] MEDS: busPIRone HCl 10 MG TAB PO SCH ×2 (09:05→20:15)
[2019-07-27] MEDS: Aspirin 81 mg Enteric Coated Tablet PO SCH (09:05)
[2019-07-27] MEDS: Trihexyphenidyl 2 MG TAB PO SCH ×3 (09:05→20:17)
[2019-07-27] MEDS: Allopurinol 100 MG TAB PO SCH (09:05)
[2019-07-27] MEDS: Floranex Packet PO SCH (09:06)
[2019-07-27] MEDS: Enoxaparin Sodium 40 MG/0.4 ML SYRINGE SC SCH (09:06)
--- NOTE | 2019-07-27 18:20 | PDOC.HOSPP ---
- Subjective Subjective: Seen and examined. Patient's family at bedside able to aid in history. Patient with low-grade fever overnight. Patient's family said that she is not taking big D breath and not coughing. Added incentive spirometry and breathing treatments. Is possible that atelectasis is causing low-grade fever. Patient's WBC count has normalized. If patient improves possibly back to [facility] tomorrow where she is a chronic resident. - Objective Vital Signs & Weight: Vital Signs (12 hours) Temp Pulse Resp BP BP BP Pulse Ox 07/27/19 16:36 150/82 H 07/27/19 16:00 98.0 F 74 20 150/82 H 95 07/27/19 11:00 98.5 F 62 20 127/69 95 07/27/19 09:05 167/73 H 07/27/19 08:00 98.9 F 77 20 167/77 H 91 L Weight Admit Weight 160 lb 7.944 oz Weight 165 lb 8 oz Most Recent Monitor Data Heart Rate from ECG 71 NIBP 140/47 NIBP BP-Mean 78 Respiration from ECG 21 SpO2 94 I&O: 07/26/19 07/27/19 07/28/19 06:59 06:59 06:59 Intake Total 100 120 Output Total 900 775 Balance -800 -655 Result Diagrams: 07/27/19 06:02 07/27/19 06:02 Additional Labs: Accuchecks 07/27/19 07/26/19 11:43 19:47 POC Glucose 167 H 224 H Radiology Reviewed by me: Yes Hospitalist ROS - Review of Systems All other systems reviewed; all pertinent +/- noted in HPI/Subj - Medication Medications: Active Medications Generic Name Dose Route Start Last Admin Trade Name Freq PRN Reason Stop Dose Admin Acetaminophen 1,000 mg 07/23/19 03:32 07/27/19 03:47 Tylenol PO 1,000 mg Q6H PRN Administration Fever > 101 Acidophilus 1 gm 07/23/19 09:00 07/27/19 09:06 Floranex PO 1 gm DAILY CARL Administration Allopurinol 100 mg 07/21/19 09:00 07/27/19 09:05 Zyloprim PO 100 mg DAILY CARL Administration Aspirin 81 mg 07/21/19 09:00 07/27/19 09:05 Ecotrin PO 81 mg DAILY CARL Administration Buspirone HCl 15 mg 07/20/19 21:00 07/27/19 09:05 Buspar PO 15 mg BID CARL Administration Carbidopa/Levodopa 1 tab 07/23/19 15:00 07/27/19 14:13 Sinemet 10/100 PO 1 tab TID CARL Administration Carvedilol 12.5 mg 07/22/19 17:00 07/27/19 16:36 Coreg PO 12.5 mg BID-WM CARL Administration Clopidogrel Bisulfate 75 mg 07/21/19 09:00 07/27/19 09:05 Plavix PO 75 mg DAILY CARL Administration Duloxetine HCl 60 mg 07/21/19 09:00 07/27/19 09:05 Cymbalta PO 60 mg DAILY CARL Administration Enoxaparin Sodium 40 mg 07/19/19 09:00 07/27/19 09:06 Lovenox SC Not Given 0900 [facility] Entacapone 200 mg 07/23/19 15:00 07/27/19 14:13 Comtan PO 200 mg TID CARL Administration Insulin Human Lispro 0 units 07/18/19 15:40 07/24/19 22:43 Humalog SC 4 unit .MODERATE SLIDING SC PRN Administration Moderate Correctional Scale Levetiracetam 750 mg 07/25/19 21:00 07/27/19 09:05 Keppra Oral Solution PO 750 mg BID [facility] Administration Levothyroxine Sodium 50 mcg 07/21/19 06:00 07/27/19 06:33 Synthroid PO 50 mcg 0600 [facility] Administration Loratadine 10 mg 07/20/19 21:00 07/26/19 20:41 Claritin PO 10 mg HS CARL Administration Trihexyphenidyl HCl 2 mg 07/20/19 15:00 07/27/19 14:13 Artane PO 2 mg TID CARL Administration - Exam General Appearance: NAD Eye: PERRL, anicteric sclera ENT: normocephalic atraumatic, moist mucosa Neck: supple, symmetric, no lymphadenopathy Heart: no murmur, no gallops, no rubs Respiratory: CTAB, no wheezes, no rales, no ronchi, normal chest expansion Gastrointestinal: soft, non-tender, non-distended, no guarding, no rigidity Extremities: no clubbing, no edema Skin: no lesions, no rashes Neurological: cranial nerve grossly intact, no focal deficits Musculoskeletal: generalized weakness Psychiatric: normal affect, normal behavior Hosp A/P (1) Anemia Code(s): D64.9 - ANEMIA, UNSPECIFIED Status: Acute Qualifiers: Anemia type: unspecified type Qualified Code(s): D64.9 - Anemia, unspecified (2) Diarrhea Code(s): R19.7 - DIARRHEA, UNSPECIFIED Status: Acute Qualifiers: Diarrhea type: unspecified type Qualified Code(s): R19.7 - Diarrhea, unspecified (3) Pneumonia Code(s): J18.9 - PNEUMONIA, UNSPECIFIED ORGANISM Status: Acute Qualifiers: Pneumonia type: due to unspecified organism Laterality: bilateral Lung location: lower lobe of lung Qualified Code(s): J18.9 - Pneumonia, unspecified organism (4) Sepsis Code(s): A41.9 - SEPSIS, UNSPECIFIED ORGANISM Status: Acute Qualifiers: Sepsis acute organ dysfunction status: with acute organ dysfunction Severe sepsis acute organ dysfunction type: acute respiratory failure Acute respiratory failure type: with hypoxia Severe sepsis shock status: without septic shock (5) Anxiety and depression Code(s): F41.9 - ANXIETY DISORDER, UNSPECIFIED; F32.9 - MAJOR DEPRESSIVE DISORDER, SINGLE EPISODE, UNSPECIFIED Status: Chronic (6) Diabetes type 2, controlled Code(s): E11.9 - TYPE 2 DIABETES MELLITUS WITHOUT COMPLICATIONS Status: Chronic Qualifiers: Diabetes mellitus [facility] insulin use: with long term care pharmacist use Diabetes mellitus complication status: without complication Qualified Code(s): E11.9 - Type 2 diabetes mellitus without complications; Z79.4 - nursing home (current) use of insulin (7) Dyslipidemia Code(s): E78.5 - HYPERLIPIDEMIA, UNSPECIFIED Status: Chronic (8) Hypertension Code(s): I10 - ESSENTIAL (PRIMARY) HYPERTENSION Status: Chronic Qualifiers: Hypertension type: essential hypertension Qualified Code(s): I10 - Essential (primary) hypertension (9) Hypothyroidism Code(s): E03.9 - HYPOTHYROIDISM, UNSPECIFIED Status: Chronic Qualifiers: Hypothyroidism type: acquired Qualified Code(s): E03.9 - Hypothyroidism, unspecified (10) Parkinson disease Code(s): G20 - PARKINSON'S DISEASE Status: Chronic (11) Acute respiratory failure with hypoxia Code(s): J96.01 - ACUTE RESPIRATORY FAILURE WITH HYPOXIA Status: Resolved - Plan Plan: Medical unit pulmonology consultation, recommendations appreciated patient would low-grade fever overnight which may be secondary to atelectasis WBC count has normalized, completed ABX adding in sinus barometer Q1 hour while awake breathing treatments to four hours while awake only continue other home medications as able blood pressure control blood sugar control G.I. prophylaxis DVT prophylaxis disposition: plan for discharge tomorrow I am back to [facility] where she is chronic resident if afebrile.
[2019-07-27] MEDS: Loratadine 10 MG TAB PO SCH (20:16)
[2019-07-28] MEDS: Levothyroxine Sodium 50 MCG TAB PO SCH (05:15)
[2019-07-28 07:14] LABS: Hemoglobin 8.2 g/dL (12.0-16.0); Mean Corpuscular HGB CONC 30.7 g/dL (32.0-36.0); Mean Corpuscular Hemoglobin 23.7 pg (27.0-31.0); Mean Corpuscular Volume 77.2 fL (78.0-98.0); Mean Platelet Volume 6.6 fL (7.4-10.4); Platelet Count 656 thou/uL (130-400); RBC Distribution Width 18.5 % (11.5-14.5); Red Blood Cell (RBC) Count 3.47 mill/uL (4.20-5.40)
[2019-07-28 07:22] LABS: Anion Gap 17 mmol/L (10-20); BUN (Urea Nitrogen) 10 mg/dL (9.8-20.1); Calc. Creatinine Clearance 68 mL/min (70-130); Calcium 8.9 mg/dL (7.8-10.44); Carbon Dioxide 21 mmol/L (23-31); Chloride 100 mmol/L (98-107); Estimated GFR-MDRD 70; Glucose 140 mg/dL (83-110); Sodium 134 mmol/L (136-145)
--- NOTE | 2019-07-28 07:56 | RAD ---
Chest AP view INDICATION: Hypoxia COMPARISON: July 15, 2019 FINDINGS: Lungs:There is worsening opacification in the left upper lobe, left infrahilar region and right infra hilar lung. Cardiac silhouette:There is moderate cardiomegaly. Pulmonary vasculature:There is [id number] pulmonary vascular congestion. Pleural spaces:There are small bilateral pleural effusions Upper abdomen:There are surgical clips within the upper abdomen. Osseous structures: There is chronic osseous changes are stable Additional findings:None. IMPRESSION: Findings of CHF. Worsening airspace opacity in the left lung and right infrahilar region may reflect worsening edema or pneumonia.
[2019-07-28] MEDS: Carvedilol 6.25 MG TAB PO SCH (08:58)
[2019-07-28] MEDS: busPIRone HCl 10 MG TAB PO SCH (08:58)
[2019-07-28] MEDS: Aspirin 81 mg Enteric Coated Tablet PO SCH (08:58)
[2019-07-28] MEDS: Entacapone 200 mg Tablet PO SCH (08:59)
[2019-07-28] MEDS: Allopurinol 100 MG TAB PO SCH (08:59)
[2019-07-28] MEDS: levETIRAcetam 500 mg/5 ml Oral Solution PO SCH (08:59)
[2019-07-28] MEDS: DULoxetine 60 MG CAP PO SCH (08:59)
[2019-07-28] MEDS: Floranex Packet PO SCH (08:59)
[2019-07-28] MEDS: Trihexyphenidyl 2 MG TAB PO SCH (08:59)
[2019-07-28] MEDS: Carbidopa/Levodopa 10-100 mg Tablet PO SCH (08:59)
[2019-07-28] MEDS: Clopidogrel Bisulfate 75 MG TAB PO SCH (08:59)
[2019-07-28] MEDS: Enoxaparin Sodium 40 MG/0.4 ML SYRINGE SC SCH (09:00)
[2019-07-28 10:18] LABS: Band 4 % (5-11); Eosinophils 2 % (0-10); Hypochromia SLIGHT = 6-15 cells (100X) (0-5/hpf); Lymphocytes 9 % (21-51); MDiff Complete? YES; Microcytosis SLIGHT = 6-15 cells (100X) (0-5/hpf); Monocytes 4 % (0-10); Neutrophil 80 % (42-75); Platelet Morphology Comment Appears Increased; Polychromasia SLIGHT = 2-3 cells (100X) (0-2/hpf); Promyelocytes 1 % (0-0)
[2019-07-28 11:51] VITALS: TEMP 98.5
[2019-07-28 15:05] VITALS: BP 165/73
--- NOTE | 2019-07-28 19:25 | DIS ---
DATE OF ADMISSION: 07/14/2019 DATE OF DISCHARGE: 07/28/2019 REASON FOR HOSPITALIZATION: Shortness of breath. SIGNIFICANT FINDINGS: The patient found to have pneumonia requiring intubation. PROCEDURES PERFORMED AND TREATMENTS RENDERED: Ms. Oliver is a 79-year-old female who presented to [facility] in [place], [place], on 07/14/2019-please see full history and physical, consultation notes, and progress notes for details. The patient initially admitted to the intensive care unit under the care of Dr. Martinez, equipment service lead. The patient was intubated and diagnosed with sepsis with pneumonia on admission. The patient was safely weaned and trialed as appropriate by equipment service lead. The patient placed on pulmonary specific antibiotics with good improvement of symptoms. The patient was successfully extubated by equipment service lead in stable condition. The patient continued to improve throughout her hospitalization and antibiotic therapy was completed in the acute care hospital. Please see full history and physical, consultation notes, and progress notes from all specialists for details. I evaluated the patient on 07/28/2019 and she is in good health at this time. The patient is breathing well on room air without the use of supplemental oxygen. The patient's lungs are clear and there is no wheezing, rales, or rhonchi. The patient does occasionally get a little wheezy, for which breathing treatments have been used as needed. The patient will continue breathing treatments in the subacute setting if she is having any wheezing or shortness of breath. The patient has been afebrile with no fevers since 07/23/2019. The patient had normalization of her white blood cell count with a white blood cell count of 11.0 on 07/28/2019. The patient is not having any significant worsening of anemia and her hemoglobin has been in the 7 to 8 range with hemoglobin of 8.2 on the day of discharge. The patient's renal function is normal with a creatinine of 0.79, and electrolytes are in good repair. The patient's blood sugars have been in the 160s to 180s range. The patient has been recommended safe for discharge back to [facility], where she is a chronic resident. The patient does have soreness and irritation on her bottom, for which she will continue to use appropriate topical creams in the long-term. All other medications to be continued as directed. The patient recommended safe for discharge by all specialists on 07/28/2019. CONDITION ON DISCHARGE: Stable. SPECIFIC INSTRUCTIONS FOR THE PATIENT/FAMILY: 1. The patient recommended safe for transfer to [facility] facility. 2. The patient is recommended to take all medications as directed, to be re-evaluated by admitting physician. 3. The patient recommended to follow up with Pulmonology and all other specialists in the upcoming weeks. 4. The patient recommended to follow up with primary care physician in the next 5 to 7 days. 5. The patient recommended to return to acute care hospital immediately if signs or symptoms return, worsen, or any other new symptoms occur. DISCHARGE MEDICATIONS: Please see full discharge medication reconciliation for details. Greater than 39 minutes spent coordinating care and discharge process for this patient. Job ID: [id number]
--- NOTE | 2019-07-29 11:42 | PRG ---
DATE OF SERVICE: 07/25/2019 SUBJECTIVE: This is a 79-year-old female with Down syndrome, was seen by me because the patient had diarrhea over the last several days. The stools are watery. The stool studies came back negative for any pathology. The patient had a rectal tube and has a Valencia bag attached to the tube and she has been having constant diarrhea. The diarrhea actually was less yesterday as per the nurses. Today, stools are back to watery again and she has some leakage around the rectal tube. At the present time, . She is tolerating diet well. No abdominal pain. No nausea, no vomiting. MEDICATIONS: List reviewed and I do not see any medication that can cause diarrhea. OBJECTIVE: GENERAL: Appears comfortable. VITAL SIGNS: Afebrile. Pulse is 77, blood pressure is 160/84. CARDIOVASCULAR: Within normal limits. LUNGS: Within normal limits. ABDOMEN: Soft. No organomegaly. No tenderness. No masses. Bowel sounds are normal. RECOMMENDATION: May add twice a day to control diarrhea. Job ID: [id number]
--- NOTE | 2019-07-29 14:23 | CON ---
DATE OF CONSULTATION: 07/24/2019 REASON FOR CONSULTATION: Diarrhea. HISTORY OF PRESENT ILLNESS: Ms. Elvie Oliver is a 79-year-old female, who is a group home resident. History of Down syndrome and also impaired cognitive defect. She does not really communicate very well. Apparently, she was in the ICU with hypotension, respiratory failure, etc. She was on broad-spectrum antibiotics. Now, she is out of ICU, and she is actually clinically very stable. I was asked to see the patient by Dr. Stefano Souza because of diarrhea. The patient is awake and alert. She does not really communicate very well. Does answer few questions. There is no family available. Apparently, when she was in the ICU, she was receiving Zosyn and also broad-spectrum antibiotic therapy. She is off the antibiotics. She had some stool exam done, came back negative for C. difficile, Campylobacter, and shiga toxins. She had a rectal tube over the last several days, and she was putting liquid material. She had about 800 mL of liquid material in the bag, and . Apparently, this was going on for the last several days. over the last 3 to 4 days. I did speak to the nurses, who take care of the stool output is getting less and less. The patient empirically was started on vancomycin because of diarrhea and possibility of C. difficile diarrhea. The patient does communicate to some extent. When asked the patient, she said she has no abdominal pain. The nurse tells she is eating fairly well. There is no nausea. No vomiting. No relevant history. MEDICAL ILLNESSES: 1. Down syndrome. 2. type 2 diabetes mellitus. 3. Hypertension. 4. Hypothyroidism. 5. Parkinson disease. 6. Past history of renal cell carcinoma. 7. Recent respiratory failure, on ventilator. SOCIAL HISTORY: The patient is a group home resident. No previous history of smoking or any alcohol intake. ALLERGIES: NONE. FAMILY HISTORY: Not able to obtain. REVIEW OF SYSTEMS: Not obtainable. PHYSICAL EXAMINATION: GENERAL: She appears very comfortable, awake, does communicate to some extent. VITAL SIGNS: Afebrile, pulse is 67, blood pressure 163/76. HEENT: Conjunctivae are clear. NECK: Supple. CARDIOVASCULAR: First and second heart sounds heard. LUNGS: Clear to auscultation. ABDOMEN: Soft and nondistended. Abdomen is nontender. No organomegaly. No masses. EXTREMITIES: Reveal no edema. LABORATORY DATA: CBC; WBC 14,700, hemoglobin 7.8, hematocrit 24.5, MCV 76.6, platelet count 371,000, polymorphs 81, lymphocytes 9. Serum chemistries; sodium 142, potassium 4.2, chloride 102, bicarb 30, BUN is 21, creatinine is 1.03, glucose 138, calcium 8.8, AST 17, ALT 16, alkaline phosphatase 74, albumin 3.3. The stool for C. difficile, negative. The stool for Campylobacter and shiga toxin, negative. There is no stool for ova and parasites done. IMPRESSION: 1. A 79-year-old female with Down syndrome, hypertension, diabetes, and hypothyroidism. She has had diarrhea over the last several days. Stools are watery, and she has had about 800 mL of stool in the colostomy bag over the last several days. The nurses tell me her stool output is getting less and less. She is eating pretty well. The etiology of diarrhea is unclear at the present time. 2. Down syndrome. 3. Diabetes. 4. Hypertension. 5. Hypothyroidism. 6. History of renal cell carcinoma in the past. 7. Recent respiratory failure. RECOMMENDATIONS: We will observe further to see whether the stool output is getting less and less. Does the diarrhea persist, obtain stool for ova and parasites and also Cryptosporidium. May try Questran or loperamide to control diarrhea for the time being. Job ID: [id number]
== END 2019-07-28 15:00 | DRG 870 ==
LOC: ERS 12:06 → CCU 16:32 → UNDODISIN 07-18 15:12 → CCU 07-21 19:02 → T4-B 07-22 18:56
PROVIDERS: ADMIT Internal Medicine; ATTEND Internal Medicine
PROC: 5A1955Z Respiratory Ventilation, Greater than 96 Consecutive Hours (ICD-10-PCS; principal; 2019-07-14)
PROC: 0BH17EZ Insertion of Endotracheal Airway into Trachea, Via Natural or Artificial Opening (ICD-10-PCS; 2019-07-14)
PROC: 30233N1 Transfusion of Nonautologous Red Blood Cells into Peripheral Vein, Percutaneous Approach (ICD-10-PCS; 2019-07-15)
DX: A41.9 Sepsis, unspecified organism (principal); J18.9 Pneumonia, unspecified organism; J96.01 Acute respiratory failure with hypoxia; J96.02 Acute respiratory failure with hypercapnia; E87.2 Acidosis; J98.11 Atelectasis; Z66 Do not resuscitate; Q90.9 Down syndrome, unspecified; E03.9 Hypothyroidism, unspecified; G20 Parkinson's disease; F41.9 Anxiety disorder, unspecified; G40.909 Epilepsy, unspecified, not intractable, without status epilepticus; M10.9 Gout, unspecified; F02.80 Dementia in other diseases classified elsewhere, unspecified severity, without behavioral disturbance, psychotic disturbance, mood disturbance, and anxiety; J44.9 Chronic obstructive pulmonary disease, unspecified; F79 Unspecified intellectual disabilities; F32.9 Major depressive disorder, single episode, unspecified; E11.9 Type 2 diabetes mellitus without complications; R65.20 Severe sepsis without septic shock; D64.9 Anemia, unspecified; R19.7 Diarrhea, unspecified; Z79.890 Hormone replacement therapy; Z74.01 Bed confinement status; Z28.82 Immunization not carried out because of caregiver refusal; Z79.899 Other long term (current) drug therapy; Z79.02 Long term (current) use of antithrombotics/antiplatelets; Z79.82 Long term (current) use of aspirin
CPT/HCPCS: 31500; 36415; 36416; 36430; 51702; 70496; 70498; 71045; 74018; 80048; 80053; 80202; 81001; 82274; 82533; 82565; 82607; 82746; 82805; 83540; 83550; 83630; 83735; 84443; 85007; 85025; 85027; 86850; 86900; 86901; 87040; 87045; 87046; 87070; 87086; 87177; 87205; 87324; 87328; 87329; 87427; 87449; 93005; 94002; 94003; 94640; 96365; 96366; 96376; 99292; J0360; J0461; J1650; J1940; J1953; J1956; J2060; J2250; J2543; J2704; J2916; J3010; J3370; J3475; J3480; J3490; J7050; J7620; P9016; Q9967; S0028